=== PATIENT | female | born 1935 | race Caucasian/White ===

== ENCOUNTER 2019-12-07 14:18 | Inpatient (IN) | payer MEDICARE, SELFPAY ==
--- NOTE | ~2019-12-07 | XR_ITS ---
XR chest 1V portable DATE: 12/07/2019 15:47 INDICATION: Shortness of breath TECHNIQUE: Portable AP chest on 12/07/2019 at 1540 hours COMPARISON: 10/03/2014 2 view chest 10/05/2015 CT pulmonary scan FINDINGS: Status post sternotomy. Cardiac megaly. Aortic calcification and tortuosity. Moderate bilateral hyperinflation suggesting possible obstructive airways disease. Small pleural effu sions are suggested. No pulmonary consolidation is evident. There is evidence of old pulmonary granul omatous disease. Pulmonary vascularity appears within normal limits. Diffuse osteopenia. Cruz in proximal left humerus. IMPRESSION: Cardiomegaly Aortic atherosclerosis Small pleural effusions may be present. Bilateral hyperinflation, suggesting possible COPD Status post sternotomy Reviewed, dictated and finalized at location B.
[2019-12-07 14:25] VITALS: BP 175/109; PULSE 83; RESP 18; TEMP 36.7; O2SAT 100
--- NOTE | 2019-12-07 14:25 | ECG_ITS ---
Measurements Intervals [place] Rate: 76 P: AL: 0 QRS: -34 QRSD: 120 T: 148 QT: 410 QTc: 462 Interpretive Statements ATRIAL FIBRILLATION LEFT AXIS DEVIATION INTRAVENTRICULAR CONDUCTION DELAY VOLTAGE CRITERIA FOR LVH CANNOT RULE OUT SEPTAL INFARCT, AGE INDETERMINATE BORDERLINE ST-T WAVE ABNORMALITY- INF/LAT LEADS BASELINE WANDER- I, III, AVR, AVL, AVF ABNORMAL ECG Electronically Signed On 12-07-2019 14:49:47 CDT by Ben Gatica D.O.
[2019-12-07 14:46] LABS: Basophils Percent Auto 0.4 % (0.2-1.2); Eosinophils Absolute Auto 0.1 K/mm3 (0-0.3); Eosinophils Percent Auto 1.3 % (0-4.4); Hematocrit 38.4 % (37.0-47.0); Hemoglobin 12.3 g/dL (12.0-15.0); Immature Granulocyte Absolute 0.02 K/mm3 (0.00-0.031); Immature Granulocyte Percent A 0.3 % (0-0.5); Lymphocytes Absolute Auto 0.92 K/mm3 (0.9-3.2); Lymphocytes Percent Auto 13.4 % (18.3-44.2); Mean Corpuscular Hemoglobin 28.5 pg (26-34); Mean Corpuscular Volume 89.1 fl (80-100); Mean Platelet Volume 9.7 fl (7.4-10.4); Monocytes Absolute Auto 0.4 K/mm3 (0.1-0.6); Monocytes Percent Auto 6.4 % (2.6-8.5); Neutrophils Absolute Auto 5.4 K/mm3 (1.3-6.7); Neutrophils Percent Auto 78.2 % (45.5-73.1); Platelet Count Result 255 k/mm3 (150-375); Red Blood Count 4.31 M/mm3 (4.2-5.4); Red Cell Distribution Width 15.5 % (11.5-14.5); White Blood Count 6.9 K/mm3 (4.5-10.0)
[2019-12-07 14:55] LABS: INR 1.2; Prothrombin Time 14.5 Seconds (11.1-14.7)
[2019-12-07 14:56] LABS: Partial Thromboplastin Time 29.4 SECONDS (22.3-36.8)
[2019-12-07 15:03] LABS: Anion Gap 11.7 mmol/L (7-16); Blood Urea Nitrogen 21 mg/dL (7-17); Calcium 9.2 mg/dL (8.4-10.2); Carbon Dioxide 25 mmol/L (22-30); Chloride 104 mmol/L (98-107); Estimated CRCL calculation 32 ml/min; Estimated Glomerular Filt Rate 53; Glucose 112 mg/dL (65-105); Potassium 3.7 mmol/L (3.4-5.0); Sodium 137 mmol/L (137-145)
[2019-12-07 15:18] LABS: NT Pro B Type Natriuretic Pept 15700 PG/ML (5-100); Troponin I 0.058 ng/mL (0.000-0.034)
--- NOTE | 2019-12-07 15:41 | ED.GENADULT ---
HPI - General Adult General Chief complaint: Shortness of Breath/Dyspnea Stated complaint: SOB Time Seen by Provider: 12/07/19 15:19 Source: patient History of Present Illness HPI narrative: Patient is a 84 y/o female complaining of moderate SOB starting about 3 days ago. She states laying down worsens her SOB. She has some chest pressure when she lays down. She denies any leg swelling, cough or fever. She states that she has history of CHF and she usually goes to a felt hat inspector and packer Dr. Mccain at [place]. She also has history of A fib. Related Data Home Medications Medication Instructions Recorded Confirmed ascorbic acid (vitamin C) 500 mg mg PO 07/11/19 07/12/19 capsule aspirin 81 mg tablet,delayed 81 mg PO DAILY 07/11/19 07/12/19 release rosuvastatin 40 mg tablet 40 mg PO DAILY 07/11/19 07/12/19 nitroglycerin 0.4 mg sublingual 0.4 mg SUBLINGUAL Q5M 07/12/19 07/12/19 tablet Allergies Allergy/AdvReac Type Severity Reaction Status Date / Time tramadol Allergy Severe Vomiting Verified 12/07/19 14:30 meperidine Allergy Intermediate Vomiting Verified 12/07/19 14:30 Review of Systems Constitutional: Constitutional: Denies chills, Denies fever(s), Denies headache(s) and Denies weakness Eyes: Eyes: Denies blurry vision ENT: Denies headache(s) and Denies neck pain Cardiovascular: Cardiovascular: Reports chest pain and Denies dyspnea Respiratory: Respiratory: Denies cough and Reports dyspnea Gastrointestinal: Gastrointestinal: Denies abdominal pain, Denies diarrhea, Denies nausea and Denies vomiting Genitourinary: Genitourinary: Denies hematuria and Denies dysuria Musculoskeletal: Musculoskeletal: Denies back pain and Denies neck pain Neurologic: Denies headache(s) and Denies weakness [facility] Past Medical History Medical History Breast cancer Colon cancer Hypertension Osteoporosis Surgical History Surgical History History of repair of hip joint Status post mastectomy Family History Family History Mother Family history of Alzheimer's disease Sibling Family history of pancreatic cancer Other Carcinoma of colon Family history of malignant neoplasm of breast in first degree relative Hypertension Social History Social History Smoking status: Never smoker Alcohol intake: never Gender identity (if verbalized by the patient): Female Exam Const: General: no acute distress and well developed Orientation/consciousness: oriented to person, oriented to place, oriented to time and patient oriented x3 HENMT: Head: normocephalic Ears: external ears normal General nose exam: Normal external nose present Eyes: General: appearance normal, both eyes and all related structures Conjunctivae: conjunctivae normal Neck: Neck: normal visual inspection and full ROM Chest: Chest palpation & inspection: normal inspection of the chest and no tenderness Resp: Effort & Inspection: normal respiratory effort Auscultation: clear to auscultation bilaterally Cardio: Rate: regular rate Rhythm: abnormal rhythm irregularly irregular GI: GI Palp: No abdominal tenderness and Yes Soft to palpation Skin: General skin exam: normal color and turgor normal Neuro: General: oriented to person, oriented to place, oriented to time and patient oriented x3 Cognition (Neuro): normal cognition Extrem: General: normal to inspection, full ROM and no pedal edema Psych: Appearance: grossly normal Mental Status: mental status grossly normal Affect: normal affect Course Reevaluation(s) Reevaluation #1: Discussed with patient and family about test results. Advised admission and also offered transfer to her felt hat inspector and packer at [place]. However, patient wants to be treated here at this hospital. Date: 12/07/19 T
[2019-12-07] MEDS: FUROSEMIDE INJ 40 MG/4 ML VIAL IV PUSH (15:57)
[2019-12-07 16:02] VITALS: BP 200/116; PULSE 76; RESP 18; O2SAT 97
[2019-12-07] MEDS: cloNIDine HCL 0.2 MG TABLET PO (18:45)
[2019-12-07 19:02] VITALS: BP 160/78; PULSE 83; RESP 28; O2SAT 97
--- NOTE | 2019-12-07 19:51 | ADMGEN ---
This patient, Flori Oleary, was admitted to IMU Room 214-01. Patient/family oriented to hospital policies and general routines including ID bracelet, bed and alarms, visiting hours, pain management, procedures, bathroom and other care routines, personal items, smoking policy, room service/diet, and visiting hours. Valuables list has been completed. Information on how to activate the Rapid Response Team has been discussed. Patient/Family are encouraged to report perceived risks to care and to ask questions if they do not understand what they are told or what they should do.
[2019-12-07 19:55] VITALS: BP 177/107; PULSE 83; RESP 16; TEMP 36.5; O2SAT 97; BMI 24.5
[2019-12-07 20:11] VITALS: PULSE 62; PULSE 78; RESP 16; O2SAT 97
--- NOTE | 2019-12-07 20:38 | PM.IMHP ---
H&P: HPI History of Present Illness Date/Time: 12/07/19 20:38 Chief complaint: chf Narrative: Flori Oleary is a 84 year old female Who has a history of congestive heart failure. She typically sees her city clerk at [facility]. His name is Dr. Mccain. The patient stated that she has been short of breath that started about 3 days ago. She cannot lay flat. She also had a little bit of chest pressure in her epigastric area. She denied any acute leg swelling but always has some small amount of swelling to her left leg were they harvested vein for her CABG. She does have a history of atrial fibrillation which is typically well controlled. She is found to be in AFib with rate controlled. Chest x-ray was read as cardiomegaly. Aortic atherosclerosis. Small pleural effusion may be present. Bilateral hyperinflation suggesting COPD. Status post sternotomy. Patient was given 40 mg of Lasix IV push in the emergency room. She also got Catapres for the elevated blood pressure as well. Patient denies any further complaints of chest pain . Patient's troponin 0.058. BNP 16718. Creatinine was normal. Electrolytes within normal limits. I spent approximately 60 minutes in the IMU with this patient. 12/07/2019 date of service. Review of Systems Review of Systems: All systems reviewed & are unremarkable except as noted in HPI and below Constitutional: Constitutional: Reports as per HPI and Reports no additional constitutional complaints Eyes: Eyes: Reports as per HPI and Reports no additional eye complaints ENT: Reports system reviewed and no additional complaints, except as documented and Reports Normal hearing present Cardiovascular: Cardiovascular: Reports no additional cardiovascular complaints Respiratory: Respiratory: Reports no additional respiratory complaints and Reports no additional respiratory complaints Gastrointestinal: Gastrointestinal: Reports as per HPI and Reports no additional gastrointestinal complaints Musculoskeletal: Musculoskeletal: Reports no additional musculoskeletal complaints Integumentary/Breasts: Skin/Breast: Reports system reviewed and no additional complaints, except as docu and Reports as per HPI Neurologic: Reports system reviewed and no additional complaints, except as documented, Reports as per HPI and Reports Normal hearing present Psychiatric: Psychiatric: Reports no additional psychiatric complaints and Reports as per HPI Endocrine: Endocrine: Reports no additional endocrine complaints Hematologic/Lymphatic: Hematologic/Lymphatic: Reports no additional hematologic/lymphatic complaints Allergic/Immunologic: Allergic/Immunologic: Reports no additional allergic/immunologic complaints [facility] Past Medical History Medical History (Updated 12/07/19 @ 20:48 by Giselle De Luna NP) Atrial fibrillation Breast cancer 2005 with radiation chemotherapy. Right mastectomy CHF (congestive heart failure) Colon cancer History of colectomy no chemo radiation at that time Hypertension Hypertension Osteoporosis Vulvar cancer She was diagnosed in 2016 and had radiation and chemotherapy no longer takes any treatment. Surgical History Surgical History (Updated 12/07/19 @ 20:50 by Giselle De Luna NP) H/O: hysterectomy History of colectomy History of repair of hip joint she broke both hips but only the level was repaired. Hx of CABG 1 vessel donor site left Status post mastectomy right side Family History Family History (Updated 12/07/19 @ 20:50 by Giselle De Luna NP) Mother Family history of Alzheimer's disease Sibling Family history of pancreatic cancer Hypertension all 4 sisters but 1 has . 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
[2019-12-07 22:00] VITALS: PULSE 54
[2019-12-08] VITALS (14 sets, daily range): BP systolic 144–171; BP diastolic 74–103; PULSE 54–79; RESP 16–18; TEMP 36.3–37.2; O2SAT 96–100
--- NOTE | 2019-12-08 | ECHO_ITS ---
Patient Info Name: Flori Oleary Age: 84 years : 1935 Gender: Female Ht: 63 in Wt: 138 lbs BSA: 1.68 m2 HR: 58 bpm BP: 171 / 103 mmHg Technical Quality: Good Exam Date: 12/08/2019 8:33 AM Exam Location: [facility] Patient Status: Outpatient Admit Date: 12/07/2019 Staff Ordering Physician: Giselle De Luna NP Candy Department Manager: Julia Bejarano RDCS Attending Provider: Ashley Cardenas PA-C Referring Physician: Calixto EDUARDO; Exam Type: CA echo doppler color flow Study Info Indications I50.9 - Heart failure, unspecified Complete two-dimensional, color flow and Doppler transthoracic echocardiogram is performed. Summary 1. There is mild aortic valve regurgitation. 2. There is moderate mitral valve regurgitation. 3. There is mild to moderate tricuspid valve regurgitation. 4. Severe pulmonary hypertension, estimated pulmonary arterial systolic pressure is 64 mmHg. Left Ventricle Left ventricular chamber dimension is normal. Left ventricular systolic function is normal, estimated at 50-55%. There is no increased left ventricular wall thickness. Left ventricular septal wall motion is normal. The left ventricular diastolic function is normal. Right Ventricle Right ventricular chamber dimension is normal. Right ventricular systolic function is normal. Left Atria Left atrial chamber dimension is moderately enlarged. Right Atria Right atrial chamber dimension is moderately enlarged. Aortic Valve The aortic valve is trileaflet. There is no aortic valve sclerosis. There is no aortic valve stenosis. There is mild aortic valve regurgitation. Pulmonic Valve The pulmonic valve is normal. There is no pulmonic valve stenosis. There is no pulmonic regurgitation. Mitral Valve The mitral valve has normal leaflets. There is no mitral valve stenosis. There is moderate mitral valve regurgitation. Tricuspid Valve The tricuspid valve leaflets are normal. There is no significant tricuspid valve stenosis. There is mild to moderate tricuspid valve regurgitation. Severe pulmonary hypertension, estimated pulmonary arterial systolic pressure is 64 mmHg. Pericardium/Pleural The pericardium appears normal. There is no pericardial effusion. Inferior Vena Cava Normal inferior vena cava with >50% collapse upon inspiration consistent with elevated right atrial pressure, 10 mmHg. Aorta The aortic root size at the sinus of Valsalva is normal. The prox ascending aorta size is normal. Left Ventricular Outflow Tract Name Value Normal LVOT 2D LVOT Diameter 1.9 cm LVOT Doppler LVOT Peak Gradient 2 mmHg LVOT Mean Gradient 1 mmHg LVOT VTI 20 cm LVOT VTI/AV VTI Ratio 0.7 LVOT Stroke Volume 55 ml LVOT CO 3.2 l/min LVOT CI 1.9 l/min/m2 Pulmonic Valve Name Value No
[2019-12-08 07:18] LABS: Basophils Percent Auto 0.7 % (0.2-1.2); Eosinophils Absolute Auto 0.2 K/mm3 (0-0.3); Eosinophils Percent Auto 2.5 % (0-4.4); Hematocrit 37.6 % (37.0-47.0); Immature Granulocyte Absolute 0.03 K/mm3 (0.00-0.031); Immature Granulocyte Percent A 0.5 % (0-0.5); Lymphocytes Absolute Auto 0.81 K/mm3 (0.9-3.2); Lymphocytes Percent Auto 13.3 % (18.3-44.2); Mean Corpuscular HGB Conc 31.9 g/dl (32-36); Mean Corpuscular Hemoglobin 28.4 pg (26-34); Mean Corpuscular Volume 89.1 fl (80-100); Mean Platelet Volume 10.2 fl (7.4-10.4); Monocytes Absolute Auto 0.5 K/mm3 (0.1-0.6); Monocytes Percent Auto 7.9 % (2.6-8.5); Neutrophils Absolute Auto 4.6 K/mm3 (1.3-6.7); Neutrophils Percent Auto 75.1 % (45.5-73.1); Platelet Count Result 229 k/mm3 (150-375); Red Blood Count 4.22 M/mm3 (4.2-5.4); Red Cell Distribution Width 15.5 % (11.5-14.5); White Blood Count 6.1 K/mm3 (4.5-10.0)
[2019-12-08 07:35] LABS: Alanine Aminotransferase 21 U/L (4-35); Albumin Level 3.6 g/dL (3.5-5.1); Alkaline Phosphatase 76 U/L (38-126); Anion Gap 10.3 mmol/L (7-16); Aspartate Amino Transferase 24 U/L (14-36); Bilirubin,Total 0.7 mg/dL (0.2-1.3); Blood Urea Nitrogen 23 mg/dL (7-17); Carbon Dioxide 29 mmol/L (22-30); Chloride 103 mmol/L (98-107); Estimated CRCL calculation 32 ml/min; Estimated Glomerular Filt Rate 53; Glucose 91 mg/dL (65-105); Magnesium 1.8 mg/dL (1.6-2.3); Potassium 3.3 mmol/L (3.4-5.0); Sodium 139 mmol/L (137-145)
--- NOTE | 2019-12-08 09:23 | PM.CNCAR ---
Assessment and Plan Assessment and plan (1) CHF (congestive heart failure): Qualifiers: Heart failure chronicity: acute on chronic Heart failure type: unspecified Qualified Code(s): I50.9 - Heart failure, unspecified Code(s): I50.9 - Heart failure, unspecified Status: Chronic Assessment and Plan: Patient is an 84-year-old white woman with history of congestive heart failure, coronary artery disease status post coronary artery bypass grafting (June 2012), hypertension, atrial fibrillation, breast cancer (2004, s/p radiation therapy, status post right mastectomy), colon cancer (status post colectomy ), who is seen in cardiac consultation for a chief complaint of dyspnea, with [id number] myocardial infarction. - She has acute on chronic heart failure with preserved ejection fraction occurring in the setting of hypertensive urgency and non ST elevation myocardial infarction. - She is symptomatically much improved with initial diuresis. - Patient reports adding a small amount of salt to her diet and importance of sodium restriction was discussed with the patient. - Improve blood pressure control, with increased doses of her amlodipine and lisinopril. - TSH normal this admission. - Continue gentle diuresis with IV Lasix with careful monitoring of electrolytes and renal function. - obtain echo to evaluate cardiac structure and function. - Given her mild troponin I elevation to 0.058 this admission with [id number] myocardial infarction, anticipate need for Lexiscan nuclear stress testing as an outpatient to evaluate for ischemia pending improvement in her acute congestive heart failure exacerbation. -Patient is normally seen by her sleeve setter safety stitch Dr. 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 Obtain records from [facility] and Dr. Mccain regarding prior left heart catheterization, stress testing, and echocardiography. (2) Atrial fibrillation: Qualifiers: Atrial fibrillation type: unspecified Qualified Code(s): I48.91 - Unspecified atrial fibrillation Code(s): I48.91 - Unspecified atrial fibrillation Status: Chronic Assessment and Plan: - She is currently in atrial fibrillation, rate controlled with heart rate 69 beats per minute. - Not initiating metoprolol as her resting heart rate was briefly 39 overnight on several occasions when she was sleeping. - avoid further dosing of clonidine given her tendency toward bradycardia overnight. - Monitor and replete potassium and magnesium as needed. - Patient was not on anticoagulation as an outpatient and she does have a history of bilateral hip fractures previously. - Initiated aspirin this admission. Pending the absence of recent falls and with tolerance of aspirin initiation, consider anticoagulation for thromboembolic risk reduction. (3) Non-ST elevation myocardial infarction (NSTEMI): Code(s): I21.4 - Non-ST elevation (NSTEMI) myocardial infarction Status: Acute Assessment and Plan: - Patient's troponin I was initially elevated at 0.058, with repeat troponin I 0.042. - Patient denies chest pain, and EKG without evidence of acute injury. - the patient was not on aspirin as an outpatient and aspirin was begun this admission. - continue rosuvastatin and obtain fasting lipid panel. - not initiating metoprolol as her resting heart rate was briefly 39 overnight on several occasions when she was sleeping. She is currently in atrial fibrillation with heart rate 69 beats per minute. - Given her known history of coronary artery disease with prior coronary bypass grafting in June 2012, the patient would benefit from Lexiscan nuclear stress testing as an outpatient to evaluate for ischemia in the setting of her mild elevatio
[2019-12-08] MEDS: FUROSEMIDE INJ 40 MG/4 ML VIAL IV PUSH (10:03)
[2019-12-08] MEDS: ROSUVASTATIN 10 MG TABLET 40 MG PO (10:03)
[2019-12-08] MEDS: POTASSIUM CHLORIDE 20 MEQ TABLET 40 MEQ PO ×2 (10:03→16:43)
[2019-12-08] MEDS: ASPIRIN 81 MG CHEWABLE TABLET 324 MG PO (10:03)
[2019-12-08] MEDS: hydroCHLOROthiazide 12.5 MG CAPSULE PO (10:04)
[2019-12-08] MEDS: amLODIPine BESYLATE 5 MG TABLET 10 MG PO (10:04)
[2019-12-08] MEDS: lisinopriL 20 MG TABLET PO ×2 (10:05→16:09)
[2019-12-08 11:14] LABS: Troponin I 0.042 ng/mL (0.000-0.034)
--- NOTE | 2019-12-08 15:50 | PM.IMPN ---
Progress Note: A&P Assessment and Plan (1) CHF (congestive heart failure): Qualifiers: Heart failure chronicity: acute on chronic Heart failure type: unspecified Qualified Code(s): I50.9 - Heart failure, unspecified Code(s): I50.9 - Heart failure, unspecified Status: Chronic Assessment and Plan: ----- echo reviewed. Patient is no longer having chest pain or dyspnea on exertion. She has improved with the IV Lasix. She will likely be able to go home tomorrow if she continues to do well. Continue lisinopril. there was concern for bradycardia, home metoprolol has not been restarted. Await cardiology's recommendations. (2) Atrial fibrillation: Qualifiers: Atrial fibrillation type: unspecified Qualified Code(s): I48.91 - Unspecified atrial fibrillation Code(s): I48.91 - Unspecified atrial fibrillation Status: Chronic Assessment and Plan: ----- Contrary to the ER note, the patient states that she has never heard of atrial fibrillation and does not have it. At this time she is rate controlled. Her home a metoprolol has been on hold. She has a history of falls but may be a candidate for anticoagulation. Will discuss with Cardiology. I educated the patient about atrial fibrillation and answered all of her questions. (3) Elevated troponin: Code(s): R79.89 - Other specified abnormal findings of blood chemistry Status: Acute Assessment and Plan: ----- Last troponin lower than the initial troponin and the patient has not had any chest pain . Likely related to heart failure.The patient did have some epigastric pain earlier. She does have a history of having 1 vessel CABG. Further recommendations per cardiology. . (4) Hypertension: Qualifiers: Hypertension type: essential hypertension Qualified Code(s): I10 - Essential (primary) hypertension Code(s): I10 - Essential (primary) hypertension Status: Chronic Assessment and Plan: ----- Last blood pressure 162/95. Continue lisinopril , amlodipine, and hydrochlorothiazide. (5) Osteoporosis: Qualifiers: Osteoporosis type: unspecified Presence of current pathological fracture: without current pathological fracture Qualified Code(s): M81.0 - Age-related osteoporosis without current pathological fracture Code(s): M81.0 - Age-related osteoporosis without current pathological fracture Status: Chronic Assessment and Plan: -----Continue with Fosamax. Time Spent With Patient Time with patient: 25 - 35 minutes Subjective Date/time seen: 12/08/19 15:50 Interval history: Pt is a 84-year-old female who presented emergency room for chest pressure and shortness of breath. Patient has history of CHF and states that felt like that. On my exam, she does not admit to atrial fibrillation and says she has never heard of it. She says she has never been diagnosed with the and has never been told she has an irregular heartbeat but does know that she has CHF. Nevertheless, the patient is feeling much better today and has not had any chest pain, shortness of breath and has been up walking to the bathroom without any dyspnea on exertion. She is eating and drinking well. She denies nausea, vomiting, fevers, chills, leg swelling. Review of Systems Review of Systems: All systems reviewed & are unremarkable except as noted in HPI and below Exam Narrative: Exam Narrative: General: Well developed well nourished patient Resting comfortably in bedin NAD HEENT: normocephalic Neck: supple Neuro: Alert and oriented x4 CV: irregularly irregular. Telemetry shows rate controlled atrial fibrillation with occasional PVCs. Flipped T-waves Resp: mild crackles that cleared with deep breaths. Overall clear to auscultation Abd: Soft, non distended. No pain to palpation. Positive bowel sounds Extremities: No swelling, erythema, or pain to
--- NOTE | 2019-12-08 20:44 | PC.NURSE ---
PATIENT TRANSFERRED TO [address] [place] [address] WITH BELONGINGS. REPORT CALLED ON DAY SHIFT TO NIGHT NURSE. VITAL SIGNS STABLE AT TIME OF TRANSFER. PATIENT PLACED ON HEART MONITOR.
[2019-12-09] VITALS (7 sets, daily range): BP systolic 148–154; BP diastolic 65–89; PULSE 61–89; RESP 16–21; TEMP 36.3–36.4; O2SAT 97–100
[2019-12-09] MEDS: hydrALAZINE HCL 20 MG/ML VIAL 10 MG IV PUSH (05:07)
[2019-12-09 05:46] LABS: Anion Gap 12.7 mmol/L (7-16); Blood Urea Nitrogen 27 mg/dL (7-17); Calcium 9.1 mg/dL (8.4-10.2); Carbon Dioxide 27 mmol/L (22-30); Chloride 98 mmol/L (98-107); Cholesterol 176 mg/dL (0-200); Estimated CRCL calculation 29 ml/min; Estimated Glomerular Filt Rate 48; Glucose 97 mg/dL (65-105); HDL Direct 37 mg/dL; Magnesium 1.8 mg/dL (1.6-2.3); Potassium 3.7 mmol/L (3.4-5.0); Sodium 134 mmol/L (137-145); Triglycerides 98 mg/dL (<150)
[2019-12-09 05:57] LABS: LDL Cholesterol Direct 107 mg/dL
[2019-12-09 08:06] LABS: Glucose Point of Care 110 (65-105)
[2019-12-09] MEDS: ASPIRIN 81 MG ENTERIC TABLET PO (08:53)
[2019-12-09] MEDS: ROSUVASTATIN 10 MG TABLET 40 MG PO (08:53)
[2019-12-09] MEDS: lisinopriL 20 MG TABLET 40 MG PO (08:53)
[2019-12-09] MEDS: amLODIPine BESYLATE 5 MG TABLET 10 MG PO (08:54)
[2019-12-09] MEDS: hydroCHLOROthiazide 12.5 MG CAPSULE PO (08:54)
[2019-12-09] MEDS: FUROSEMIDE INJ 40 MG/4 ML VIAL IV PUSH (08:54)
--- NOTE | 2019-12-09 10:23 | PM.DS ---
DS: Admitting Diagnosis Admitting Diagnosis Admitting Diagnosis: Heart failure, unspecified DS: Discharge Diagnosis Discharge Diagnosis (1) CHF (congestive heart failure): Qualifiers: Heart failure chronicity: acute on chronic Heart failure type: unspecified Qualified Code(s): I50.9 - Heart failure, unspecified Code(s): I50.9 - Heart failure, unspecified Status: Chronic Assessment and Plan: ----- echo reviewed. Patient is no longer having chest pain or dyspnea on exertion. She has improved with the IV Lasix And has been transition to oral at discharge. She is going to get a repeat BMP with results going to Dr. Calvo's long-term metoprolol decreased. (2) Atrial fibrillation: Qualifiers: Atrial fibrillation type: unspecified Qualified Code(s): I48.91 - Unspecified atrial fibrillation Code(s): I48.91 - Unspecified atrial fibrillation Status: Chronic Assessment and Plan: ----- Contrary to the ER note, the patient states that she has never heard of atrial fibrillation and does not have it. At this time she is rate controlled. I spoke to Cardiology and the patient about this. We will continue her on her metoprolol. Her CHADS2 Vasc score was 6 and her has bled score was two. She does not have any recent falls and is pretty active. She was started on a low dose 2.5 mg of Eliquis for stroke prophylaxis and educated about the worrisome signs and symptoms for acute blood loss and come back to emergency room if needed. Follow-up with cardiology (3) Elevated troponin: Code(s): R79.89 - Other specified abnormal findings of blood chemistry Status: Acute Assessment and Plan: ----- Last troponin lower than the initial troponin and the patient has not had any chest pain . . (4) Hypertension: Qualifiers: Hypertension type: essential hypertension Qualified Code(s): I10 - Essential (primary) hypertension Code(s): I10 - Essential (primary) hypertension Status: Chronic Assessment and Plan: ----- Last blood pressure 148/65. Continue lisinopril , amlodipine, and Lasix (5) Osteoporosis: Qualifiers: Osteoporosis type: unspecified Presence of current pathological fracture: without current pathological fracture Qualified Code(s): M81.0 - Age-related osteoporosis without current pathological fracture Code(s): M81.0 - Age-related osteoporosis without current pathological fracture Status: Chronic Assessment and Plan: -----Continue with Fosamax. DS: Summary Hospital Course Reason for hospitalization: CHF exacerbation Hospital Course: patient is an 84-year-old female with history of coronary artery disease with a CABG who presented emergency room for shortness of breath and chest pressure found to be in CHF exacerbation And atrial fibrillation. vitals in the ER were temperature 36.7?, pulse 83, respiratory rate 18, blood pressure 175/109, pulse ox 100 on room air. Initial CBC within normal limits. Initial BMP [place] [address] and initial troponin 0.058 which decreased to 0.042. EKG revealed atrial fibrillation, left axis deviation, intraventricular conduction delay. Chest x-ray revealed cardiomegaly with small pleural effusions and possible COPD. Patient was admitted to the hospitalist service and started on IV Lasix. She was seen by the cigar maker service as well but usually sees Dr. Mccain. the patient claims that she has CHF but no history of atrial fibrillation despite the ER documentation. She improved with IV Lasix and her chest pain resolved. She underwent an echo which is detailed below. Her blood pressure was uncontrolled during her stay but improved with medication adjustment. Her blood pressure at discharge was 148/65. Please see above for further details. the day of discharge the patient felt back to baseline and was re
--- NOTE | 2019-12-10 11:07 | PC.NURSE ---
Pt called, says Phylicia Carvalho has not received discharge scripts for furosemide, potassium, & eliquis. Alana called scripts in to pharmacy and spoke with a pharmacy sales representative jewelry who says they will fill those promptly.
== END 2019-12-09 12:45 | disposition home or self-care (01) | DRG 280 ==
LOC: ANHED 18:19 → ANHIMU 18:38 → ANH2MED 12-09 03:19 → ANHIMU 12-13 14:13
PROVIDERS: Internal Medicine Cardiovascular Disease; Nurse Practitioner; Physician Assistant; Admitting Provider Family Medicine; Emergency Provider Emergency Medicine; PCP Internal Medicine; Visit Provider Internal Medicine
DX: I16.0 Hypertensive urgency (principal); I21.4 Non-ST elevation (NSTEMI) myocardial infarction; I50.33 Acute on chronic diastolic (congestive) heart failure; I11.0 Hypertensive heart disease with heart failure; Z95.1 Presence of aortocoronary bypass graft; I25.10 Atherosclerotic heart disease of native coronary artery without angina pectoris; I70.0 Atherosclerosis of aorta; I48.91 Unspecified atrial fibrillation; M81.0 Age-related osteoporosis without current pathological fracture; Z85.038 Personal history of other malignant neoplasm of large intestine; Z85.3 Personal history of malignant neoplasm of breast; Z85.44 Personal history of malignant neoplasm of other female genital organs; Z90.49 Acquired absence of other specified parts of digestive tract; Z79.899 Other long term (current) drug therapy
CPT/HCPCS: 36415; 71045; 80048; 80053; 80061; 83735; 83880; 84443; 84484; 85025; 85610; 85730; 93005; 93306; 96374; 96376; 99285; A9270; G0378; J0360; J1940

== ENCOUNTER 2019-12-15 08:48 | Outpatient (CLI) | payer MEDICARE, SELFPAY ==
[2019-12-15 09:27] LABS: Anion Gap 8 mmol/L (8-16); Blood Urea Nitrogen 33 mg/dL (7-17); Calcium 9.7 mg/dL (8.4-10.2); Carbon Dioxide 30 mmol/L (22-30); Chloride 99 mmol/L (98-107); Estimated Glomerular Filt Rate 48; Glucose 101 mg/dL (65-105); Potassium 4.1 mmol/L (3.4-5.0); Sodium 137 mmol/L (137-145)
== END 2019-12-15 08:49 | disposition home or self-care (01) ==
LOC: ANHLAB 08:50
PROVIDERS: PCP Internal Medicine; Visit Provider Physician Assistant
DX: E87.6 Hypokalemia (principal)
CPT/HCPCS: 36415; 80048

== ENCOUNTER 2020-08-29 01:20 | Inpatient (IN) | payer MEDICARE, SELFPAY ==
[2020-08-29] VITALS (9 sets, daily range): BP systolic 105–187; BP diastolic 63–99; PULSE 68–87; RESP 16–19; TEMP 36.3–37.1; O2SAT 94–99; BMI 26.2
--- NOTE | ~2020-08-29 | CT_ITS ---
EXAMINATION: CT brain wo con DATE: 08/30/2020 07:26 INDICATION: Cerebrovascular accident. TECHNIQUE: Computed tomography (CT) of the head was performed without intravenous contrast. The mA wa s adjusted according to patient size. Iterative reconstruction technique was employed. The dose-lengt h product was 605.33 mGy-cm. COMPARISON: Head CT 08/29/2020, brain MRI 08/29/2020 FINDINGS: There are old infarcts involving the bilateral basal ganglia and farias radiata. There is a n 11 x 7 mm calcified extra-axial mass in right cerebellopontine angle. There are scattered areas of low attenuation in the cerebral white matter. There is no intracranial hemorrhage. There is an acute infarct involving left internal capsule and left caudate body. The ventricles are normal in size. The re are likely changes of left ocular lens replacement surgery. There are calcifications at the 3d designer ior aspects of the ocular globes. The mastoid air cells are normal. IMPRESSION: 1. Acute infarct involving left internal capsule and left caudate body. 2. Old infarcts involving the bilateral basal ganglia and farias radiata. 3. 11 mm calcified extra-axial mass in right cerebellopontine angle, which may be a dural calcificati on or meningioma. 4. Moderate nonspecific cerebral white matter disease, which likely represents chronic small vessel i schemic disease. Reviewed, dictated and finalized at location A. IMPRESSION: 1. Acute infarct involving left internal capsule and left caudate body. 2. Old infarcts involving the bilateral basal ganglia and farias radiata. 3. 11 mm calcified extra-axial mass in right cerebellopontine angle, which may be a dural calcification or meningioma. 4. Moderate nonspecific cerebral white matter disease, which likely represents chronic small vessel ischemic disease.
--- NOTE | ~2020-08-29 | US_ITS ---
EXAMINATION: US carotid duplex BI DATE: 08/29/2020 17:32 INDICATION: Acute stroke. TECHNIQUE: Grayscale, color Doppler, and pulsed Doppler images of the cervical carotid arteries were obtained. The degree of vessel stenosis is placed in one of the following categories: normal, <50%, 5 0-69%, >=70% but less than near-occlusion, near-occlusion, or total occlusion. Note that percent sten osis relative to normal distal artery lumen diameter is indirectly measured from velocity measurement s as described by Santana, et al. Radiology 2003; 229:340-346. COMPARISON: None. FINDINGS: RIGHT: The right common carotid artery (CCA) peak systolic velocity (PSV) is 69 cm/s. The right internal car otid artery (ICA) PSV is 109 cm/s. The right ICA end-diastolic velocity (EDV) is 21 cm/s. The right I CA/CCA PSV ratio is 1.6. Grayscale and color Doppler images yield an estimate of <50% diameter reduct ion from plaque in the ICA. The external carotid artery (ECA) PSV is 225 cm/s. There is antegrade jayla w in the right vertebral artery. LEFT: The left CCA PSV is 84 cm/s. The left ICA PSV is 125 cm/s. The left ICA EDV is 37 cm/s. The left ICA/ CCA PSV ratio is 1.5. Grayscale and color Doppler images yield an estimate of 50-69% diameter reducti on from plaque in the ICA. The ECA PSV is 169 cm/s. There is antegrade flow in the left vertebral art anna. IMPRESSION: 1. <50% stenosis in the right internal carotid artery. 2. 50-69% stenosis in the left internal carotid artery. 3. Cardiac arrhythmia is present. Correlate with EKG . Reviewed, dictated and finalized at location A.
--- NOTE | ~2020-08-29 | CT_ITS ---
EXAMINATION: CTA brain carotid EXAM DATE: 08/30/2020 09:40 INDICATION: New CVA, weakness, carotid stenosis . Acute left internal capsular, caudate body infarcti ons. Old basal ganglia, farias radiata infarctions. TECHNIQUE: Spiral CTA of the carotid arteries was performed with intravenous injection 100 cc of Om nipaque 350. Axial, coronal, sagittal reformatted images reviewed. Additional reformatted images cre ated on dedicated 3-D workstation. NASCET comparable standard used to assess the degree of arterial stenosis. Spiral CT angiogram cerebral arteries performed with the same intravenous injection of con trast. Source images of the brain CTA transferred to dedicated workstation for 3-D rotational image c reation. Coronal, sagittal maximum intensity pixel images also reviewed. The dose-length product (D LP) for this examination was 867.91 mGy-cm. The exposure was tailored according to patient size, an d iterative reconstruction (ASIR) was used as additional dose reduction technique. Correlation is mad e to head CT from earlier same date. FINDINGS: Moderate amount of scattered arterial sclerotic disease overall, with 70% stenosis of the r ight subclavian artery just beyond its origin, for short segment. There is 30% stenosis of the left c arotid bulb, and 45% stenosis of the right carotid bulb arterial sclerosis. Bilateral carotid siphon arterial sclerosis, with only mild stenosis. Scattered bilateral vertebral artery calcifications with fusiform dilation of the left vertebral artery just below the foramen magnum, up to 7 mm in diameter versus its expected caliber of 4 mm proximal to this. More saccular 6 mm aneurysm of the left verteb ral artery just proximal to the basilar junction potentially could be considered for prophylactic bautista atment. Extensive scattered right vertebral arterial sclerotic disease with multiple regions of narro wing. Severe short statement stenosis of mid aspect right anterior cerebral artery, the A3 segment in dicated on axial image 156. Small hypodense region left periventricular region, internal capsule and caudate body most likely an acute infarction given it was not identified yesterday. Bilateral lacunar infarctions. Microangiopath y. Left-sided cataract surgery. Calcified right cerebellopontine angle 11 mm mass probably a meningio ma. Multinodular goiter. Overall moderate cervical arthropathy. Left shoulder hardware, sternotomy wi res. There is a growth along the skin of the left upper forehead, region measuring 8 mm in diameter b y 3 mm in thickness. This could be a mole or skin cancer. Other regions of smaller focal skin thicken ing as well. IMPRESSION: 1. Probable small acute left periventricular lacunar infarction. 2. 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 3. Right carotid bulb 45% stenosis, left carotid bulb 30% stenosis. 4. Right subclavian artery origin 70% stenosis. 5. Short segment severe stenosis right anterior cerebral artery. 6. Scalp lesions, largest along left frontal region. Cancer not excludable 7. Other chronic findings. Reviewed, dictated and finalized at location A. IMPRESSION: 1. Probable small acute left periventricular lacunar infarction. 2. 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 3. Right carotid bulb 45% stenosis, left carotid bulb 30% stenosis. 4. Right subclavian artery origin 70% stenosis. 5. Short segment severe stenosis right anterior cerebral artery. 6. Scalp lesions, largest along left frontal region. Cancer not excludable 7. Other chronic findings.
--- NOTE | ~2020-08-29 | CT_ITS ---
EXAMINATION: CT pelvis wo con DATE: 08/29/2020 14:30 INDICATION: Pelvis pain. TECHNIQUE: Computed tomography (CT) of the pelvis was performed without intravenous contrast. Automat ed exposure control and iterative reconstruction technique were employed. The dose-length product was 426.84 mGy-cm. COMPARISON: CT abdomen and pelvis 09/03/2015 FINDINGS: There is diverticulosis of the colon without evidence of diverticulitis. There is a left hi p bipolar hemiarthroplasty in near-anatomic alignment. There is an oblique fracture of greater trocha nter of proximal right femur. The distal fracture fragment demonstrates near-anatomic alignment. Ther e is moderate right hip osteoarthritis. There are old healed fractures of left superior and inferior pubic rami. There is mild lumbar spondylosis. IMPRESSION: 1. Acute oblique fracture of the greater trochanter of proximal right femur in near-anatomic alignmen t. 2. Moderate right hip osteoarthritis. 3. Left hip bipolar hemiarthroplasty in near-anatomic alignment. Reviewed, dictated and finalized at location A. IMPRESSION: 1. Acute oblique fracture of the greater trochanter of proximal right femur in near-anatomic alignment. 2. Moderate right hip osteoarthritis. 3. Left hip bipolar hemiarthroplasty in near-anatomic alignment.
--- NOTE | ~2020-08-29 | NM_ITS ---
EXAMINATION: NM bone scan whole body DATE: 08/30/2020 13:53 INDICATION: Sclerotic skull lesion. TECHNIQUE: 23.1 mCi Tc-99m HDP was administered intravenously. Delayed whole-body scintigrams were o btained. COMPARISON: Head CT 08/30/2020, brain MRI 08/29/2020, chest single view 12/07/2019, pelvis CT 08/29/2020 FINDINGS: There is faint increased activity in right lateral skull in the lesion seen by MRI. There i s joint-centered increased activity in the knees, feet, and spine, consistent with osteoarthritis. Th ere is a left hip arthroplasty. There is increased activity in the greater trochanter of proximal rig ht femur. There are changes of median sternotomy. IMPRESSION: 1. Increased activity in right lateral skull in the lesion seen by MRI. As an isolated lesion, this f inding is likely benign. 2. Increased activity in greater trochanter of proximal right femur correlating with a fracture by CT . Reviewed, dictated and finalized at location A. IMPRESSION: 1. Increased activity in right lateral skull in the lesion seen by MRI. As an i solated lesion, this finding is likely benign. 2. Increased activity in greater trochanter of proximal right femur correlating with a fracture by CT.
--- NOTE | ~2020-08-29 | MR_ITS ---
EXAMINATION: MR brain/brain stem wo con DATE: 08/29/2020 14:23 INDICATION: Right hemiparesis. TECHNIQUE: Magnetic resonance imaging (MRI) of the brain and brainstem was performed without intraven ous contrast. Sequences included sagittal and axial T1-weighted FSE, axial diffusion-weighted FS EPI, axial T2*-weighted GRE, axial T2-weighted FLAIR Propeller, and axial T2-weighted Propeller. Apparent diffusion coefficient (ADC) maps were created. COMPARISON: Head CT 08/29/2020, bone scan 10/23/2004 FINDINGS: There is an acute infarct involving the posterior limb left internal capsule. There are old infarcts in the bilateral basal ganglia and farias radiata. There are scattered areas of nonspecific increased T2-weighted signal intensity in the cerebral white matter. There is no intracranial hemorr bandar. There is ex vacuo dilatation of frontal horn of left lateral ventricle. There is mild mucosal t hickening in the paranasal sinuses. There are likely changes of left ocular lens replacement surgery. The mastoid air cells are normal. There is a 3.6 x 2.5 cm mass of decreased T2 and T1 weighted signa l intensity in the bone marrow of the skull on the right. IMPRESSION: 1. Acute infarct involving posterior limb left internal capsule. 2. Old infarcts in the bilateral basal ganglia and farias radiata. 3. Moderate nonspecific cerebral white matter disease, which likely represents chronic small vessel i schemic disease. 4. 3.6 cm right skull lesion correlating with ill-defined sclerosis by CT, which may be benign or met astatic disease. Bone scan is recommended. Reviewed, dictated and finalized at location A. IMPRESSION: 1. Acute infarct involving posterior limb left internal capsule. 2. Old infarcts in the bilateral basal ganglia and farias radiata. 3. Moderate nonspecific cerebral white matter disease, which likely represents chronic small vessel ischemic disease. 4. 3.6 cm right skull lesion correlating with ill-defined sclerosis by CT, whic h may be benign or metastatic disease. Bone scan is recommended.
--- NOTE | ~2020-08-29 | XR_ITS ---
EXAMINATION: XR hip RT 2V w AP pelvis DATE: 08/29/2020 04:27 INDICATION: Right hip pain. Fall. TECHNIQUE: An anteroposterior pelvis and 2 views of right hip were obtained. COMPARISON: Pelvis radiograph 11/15/2017 FINDINGS: There is a bipolar left hip hemiarthroplasty in near-anatomic alignment. There are old heal ed fractures of left superior and inferior pubic rami. Osteopenia is noted. There is moderate lumbar spondylosis. There is moderate right hip osteoarthritis. Osteitis pubis is noted. Surgical clips over lie the perineum and left thigh. IMPRESSION: 1. Moderate right hip osteoarthritis. 2. Left hip bipolar hemiarthroplasty in near-anatomic alignment. Reviewed, dictated and finalized at location A.
--- NOTE | ~2020-08-29 | CT_ITS ---
EXAMINATION: CT brain wo con DATE: 08/29/2020 04:34 INDICATION: Head injury. TECHNIQUE: Computed tomography (CT) of the head was performed without intravenous contrast. The mA wa s adjusted according to patient size. Iterative reconstruction technique was employed. The dose-lengt h product was 605.33 mGy-cm. COMPARISON: None FINDINGS: There are old infarcts involving the bilateral basal ganglia and farias radiata. There are scattered areas of low attenuation in the cerebral white matter. There is no intracranial hemorrhage, acute infarction, or abnormal intracranial mass lesion. The ventricles are normal in size. There are posterior choroidal calcifications in the ocular globes. There is mild mucosal thickening in the par anasal sinuses. The mastoid air cells are normal. IMPRESSION: 1. Old infarcts involving the bilateral basal ganglia and farias radiata. 2. Moderate nonspecific cerebral white matter disease, which likely represents chronic small vessel i schemic disease. Reviewed, dictated and finalized at location A. IMPRESSION: 1. Old infarcts involving the bilateral basal ganglia and farias radiata. 2. Moderate nonspecific cerebral white matter disease, which likely represents chronic small vessel ischemic disease.
--- NOTE | 2020-08-29 01:36 | PC.NURSE ---
Nurse notes and orders also written on paper charting.
--- NOTE | 2020-08-29 01:44 | ECG_ITS ---
Measurements Intervals [place] Rate: 69 P: IA: 0 QRS: -42 QRSD: 129 T: 97 QT: 467 QTc: 504 Interpretive Statements ATRIAL FIBRILLATION VENTRICULAR PREMATURE COMPLEXES LEFT AXIS DEVIATION LEFT BUNDLE BRANCH BLOCK BASELINE ARTIFACT- I, II, III, AVR, AVL, AVF, V3-V6 ABNORMAL ECG Electronically Signed On 08-29-2020 7:09:04 CDT by Ben Gatica D.O.
[2020-08-29] MEDS: HYDROcodone/acetaminophen (*CRX) 5-325 MG TABLET 1 TAB PO ×2 (02:27→16:02)
--- NOTE | 2020-08-29 02:30 | PC.NURSE ---
MAKAYLA [facility] administration of [place].
[2020-08-29] MEDS: PROMETHAZINE HCL 25 MG/ML AMPUL 12.5 MG IV PUSH (03:08)
[2020-08-29] MEDS: POTASSIUM CHLORIDE 20 MEQ PACKET (FOR LIQUID) PO (03:08)
--- NOTE | 2020-08-29 03:08 | PC.NURSE ---
50mL bag of normal saline used for Phenergan dilution.
[2020-08-29] MEDS: HYDROmorphone HCL INJ (*CRX) 1 MG/ML SYR 0.5 MG IV PUSH (03:46)
--- NOTE | 2020-08-29 04:13 | ED.FALL ---
HPI - Fall General Chief Complaint: Fall Source: patient Mode of arrival: other Limitations: no limitations History of Present Illness HPI Narrative: Patient is an 84-year-old female complaining of right hip pain, 10 out of 10, aching, after she fell prior to arrival. Patient states that she has been having right lower extremity weakness and right upper and lower extremity numbness that started yesterday. Patient's he attributes the fall to the weakness of her right lower extremity. Patient thinks that she has had a mini stroke . Patient denies any speech or visual disturbance, chest pain, shortness of breath, Eleazar pain, nausea, vomiting, fever or chills. Patient denies any loss of consciousness. Patient denies any neck pain or back pain. Related Data Home Medications Medication Instructions Recorded Confirmed rosuvastatin 40 mg tablet 40 mg PO DAILY 07/11/19 06/05/20 nitroglycerin 0.4 mg sublingual 0.4 mg SUBLINGUAL Q5M 07/12/19 06/05/20 tablet metoprolol succinate 25 mg 25 mg PO DAILY 02/06/20 06/05/20 tablet,extended release 24 hr Allergies Allergy/AdvReac Type Severity Reaction Status Date / Time tramadol Allergy Severe Vomiting Verified 02/06/20 13:01 meperidine Allergy Intermediate Vomiting Verified 02/06/20 13:01 Review of Systems Review of Systems: All systems reviewed & are unremarkable except as noted in HPI and below Constitutional: Constitutional: Denies body ache(s), Denies chills, Denies excessive sweating, Denies fatigue, Denies fever(s), Denies headache(s), Denies lethargy, Denies malaise, Denies weakness and Denies weight loss Eyes: Eyes: Denies blurry vision, Denies change in vision and Denies loss of vision ENT: Denies dizziness, Denies ear discharge, Denies headache(s), Denies lip swelling, Denies epistaxis, Denies nasal congestion, Denies neck pain, Denies throat swelling and Denies tongue swelling Cardiovascular: Cardiovascular: Denies chest pain, Denies chest pain at rest, Denies chest pain with activity, Denies diaphoresis, Denies rapid heart rate, Denies edema, Denies irregular heart rhythm, Denies lightheadedness, Denies palpitations, Denies dyspnea and Denies dyspnea on exertion Respiratory: Respiratory: Denies chest congestion, Denies cough, Denies hemoptysis, Denies dyspnea and Denies dyspnea on exertion Gastrointestinal: Gastrointestinal: Denies abdominal pain, Denies melena, Denies hematochezia, Denies diarrhea, Denies nausea, Denies vomiting and Denies hematemesis Musculoskeletal: Musculoskeletal: Denies abnormal gait, Denies deformity, Denies joint swelling, Denies limited range of motion and Denies neck pain Neurologic: Denies Abnormal speech present, Denies abnormal gait, Denies confusion, Denies dizziness, Denies headache(s), Denies loss of vision, Denies numbness, Denies Other visual disturbances and Denies Sensory deficit (Neuro) Psychiatric: Psychiatric: Denies confusion, Denies depression, Denies auditory hallucinations, Denies homicidal ideation and Denies suicidal ideation Endocrine: Endocrine: Denies cold intolerance, Denies excessive sweating, Denies fatigue, Denies heat intolerance and Denies palpitations Hematologic/Lymphatic: Hematologic/Lymphatic: Denies easy bleeding and Denies easy bruising Allergic/Immunologic: Allergic/Immunologic: Denies lip swelling, Denies throat swelling and Denies tongue swelling [facility] Past Medical History Medical History (Updated 08/29/20 @ 04:19 by Elder Mac MD) Atrial fibrillation Breast cancer 2004 with radiation chemotherapy. Right mastectomy CHF (congestive heart failure) Colon cancer History of colectomy no chemo radiation at that time Hypertension Hypertension Osteoporosis Vulvar cancer She was diagnosed in 2016 and had radiation and chemotherapy no longer takes any treatment. Surgical History Surgical History H/O: hysterectomy History of colectomy Histor
[2020-08-29 04:44] LABS: Anion Gap 9 mmol/L (8-16); Blood Urea Nitrogen 17 mg/dL (7-17); Calcium 9.4 mg/dL (8.4-10.2); Carbon Dioxide 26 mmol/L (22-30); Chloride 104 mmol/L (98-107); Estimated CRCL calculation 44 ml/min; Estimated Glomerular Filt Rate > 60; Glucose 136 mg/dL (65-105); Potassium 3.1 mmol/L (3.4-5.0); Sodium 139 mmol/L (137-145)
--- NOTE | 2020-08-29 04:49 | ADMGEN ---
This patient, Flori Oleary, was admitted to [address] [place] [address] Room 315-02 at 0420. Patient/family oriented to hospital policies and general routines including ID bracelet, bed and alarms, visiting hours, pain management, procedures, bathroom and other care routines, personal items, smoking policy, room service/diet, and visiting hours. Information on how to activate the Rapid Response Team has been discussed. Patient/Family are encouraged to report perceived risks to care and to ask questions if they do not understand what they are told or what they should do.
[2020-08-29 04:51] LABS: Hematocrit 39.3 % (37.0-47.0); Hemoglobin 12.6 g/dL (12.0-15.0); Immature Granulocyte Percent A 0.4 % (0-0.5); Lymphocytes Percent Auto 10.9 % (18.3-44.2); Mean Corpuscular HGB Conc 32.1 g/dl (32-36); Mean Corpuscular Hemoglobin 27.9 pg (26-34); Mean Corpuscular Volume 86.9 fl (80-100); Mean Platelet Volume 10.3 fl (7.4-10.4); Neutrophils Percent Auto 81.6 % (45.5-73.1); Platelet Count Result 225 k/mm3 (150-375); Red Blood Count 4.52 M/mm3 (4.2-5.4); Red Cell Distribution Width 15.2 % (11.5-14.5); White Blood Count 8.6 K/mm3 (4.5-10.0)
[2020-08-29 04:52] LABS: Basophils Percent Auto 0.5 % (0.2-1.2); Eosinophils Absolute Auto 0.1 K/mm3 (0-0.3); Eosinophils Percent Auto 1.5 % (0-4.4); Immature Granulocyte Absolute 0.03 K/mm3 (0.00-0.031); Lymphocytes Absolute Auto 0.93 K/mm3 (0.9-3.2); Monocytes Absolute Auto 0.4 K/mm3 (0.1-0.6); Monocytes Percent Auto 5.1 % (2.6-8.5)
[2020-08-29 05:01] LABS: INR 1.2; Partial Thromboplastin Time 32.3 SECONDS (22.3-36.8); Prothrombin Time 16.2 Seconds (11.1-14.7)
[2020-08-29 09:03] LABS: Basophils Percent Auto 0.3 % (0.2-1.2); Eosinophils Percent Auto 0.2 % (0-4.4); Hematocrit 39.4 % (37.0-47.0); Hemoglobin 12.5 g/dL (12.0-15.0); Immature Granulocyte Absolute 0.02 K/mm3 (0.00-0.031); Immature Granulocyte Percent A 0.2 % (0-0.5); Lymphocytes Absolute Auto 0.85 K/mm3 (0.9-3.2); Lymphocytes Percent Auto 9.6 % (18.3-44.2); Mean Corpuscular HGB Conc 31.7 g/dl (32-36); Mean Corpuscular Volume 88.1 fl (80-100); Monocytes Absolute Auto 0.5 K/mm3 (0.1-0.6); Monocytes Percent Auto 6.1 % (2.6-8.5); Neutrophils Absolute Auto 7.4 K/mm3 (1.3-6.7); Neutrophils Percent Auto 83.6 % (45.5-73.1); Platelet Count Result 222 k/mm3 (150-375); Red Blood Count 4.47 M/mm3 (4.2-5.4); Red Cell Distribution Width 15.3 % (11.5-14.5); White Blood Count 8.9 K/mm3 (4.5-10.0)
[2020-08-29 09:16] LABS: Cholesterol 194 mg/dL (0-200); HDL Direct 55 mg/dL; Triglycerides 74 mg/dL (<150)
[2020-08-29 09:17] LABS: Anion Gap 8 mmol/L (8-16); Blood Urea Nitrogen 15 mg/dL (7-17); Calcium 9.2 mg/dL (8.4-10.2); Carbon Dioxide 29 mmol/L (22-30); Chloride 101 mmol/L (98-107); Estimated CRCL calculation 44 ml/min; Estimated Glomerular Filt Rate > 60; Glucose 109 mg/dL (65-105); Magnesium 1.6 mg/dL (1.6-2.3); Potassium 3.6 mmol/L (3.4-5.0); Sodium 138 mmol/L (137-145)
[2020-08-29 09:27] LABS: LDL Cholesterol Direct 115 mg/dL
[2020-08-29] MEDS: DOCUSATE SODIUM 100 MG CAPSULE PO ×2 (09:50→20:31)
[2020-08-29] MEDS: ENOXAPARIN 80 MG/0.8 ML SYRINGE 65 MG SUB-Q ×2 (09:50→20:31)
[2020-08-29] MEDS: lisinopriL 20 MG TABLET PO (09:51)
[2020-08-29] MEDS: ROSUVASTATIN 10 MG TABLET 40 MG PO (09:51)
[2020-08-29] MEDS: FUROSEMIDE 20 MG TABLET PO (09:51)
[2020-08-29] MEDS: hydroCHLOROthiazide 12.5 MG CAPSULE PO (09:51)
[2020-08-29] MEDS: METOPROLOL SUCCINATE EXT REL 12.5 MG TABCR PO (09:52)
[2020-08-29 10:33] LABS: Add Urine Microscopic? YES; Appearance Urine Cloudy (Clear); Bacteria Urine Trace /hpf; Bilirubin Urine Negative (Negative); Blood Urine 1+ (Negative); Color Urine Yellow (Yellow); Glucose Urine UA Negative (Negative); Ketones Urine Negative (Negative); Leukocyte Esterase Ur 1+ LEU/UL (Negative); Mucus Urine Rare /lpf; Nitrate Urine Positive (Negative); Protein Urine 1+ mg/dL (Negative); RBC Urine 0-2 /hpf (0-2); Specific Grav Ur 1.011 (1.001-1.035); Squamous Epithelial Cell Urine Many /hpf (Few); Urobilinogen Urine Negative mg/dL (<2.0); WBC Urine 16-20 /hpf
--- NOTE | 2020-08-29 10:58 | PM.IMHP ---
H&P: HPI History of Present Illness Date/Time: 08/29/20 10:58 Chief Complaint: Hip pain Narrative: This is an 84 year old woman with history of vulvar cancer, Afib on Eliquis, HTN, who presented to the ER after a fall with hip pain. Patient states on Sunday 08/27, she woke up and had heaviness to her right arm and leg. She had trouble getting around and used a walker which she does not normally have 2. She then went to get her 2nd COVID vaccine ([employer]) and came back home period. The patient continued to have some heaviness to her right leg and arm what did not come in for evaluation. The patient went to the bathroom around 11:00 p.m. on 08/28 and while walking into the bathroom using her walker she states her legs gave out . She did report hitting the back of her head on the bathtub. She denies any headache, vision changes, neck pain. She denies any loss of consciousness, lightheadedness, dizziness. The patient was unable to get herself up so she called her grandson who lives in the [facility] next door and him in his came and picked her up. She was not complaining of right hip pain and she was brought to the emergency room for further evaluation. Initial vitals showed afebrile 98.1F, HR 68, RR 17, BP 187/99, O2 99% on RA. Initial labs showed normal CBC other than elevated neutrophil count. Normal coag panel. Hypokalemia at 3.1. Hip and pelvis x-ray showed moderate right osteoarthritis. Left hip bipolar hemiarthroplasty in near anatomic alignment. CT brain showed old infarcts involving bilateral basal cannula and farias radiata. Moderate nonspecific cerebral white matter disease. Patient was admitted to the hospital for pain control, hip pain, further evaluation and work up for possible stroke. Code Status- Full Code POA- Daughter Marilyn Gaytan Review of Systems Review of Systems: All systems reviewed & are unremarkable except as noted in HPI and below [facility] Past Medical History Medical History (Updated 08/29/20 @ 17:28 by Teena Chan PA-C) Atrial fibrillation Breast cancer 2004 with radiation chemotherapy. Right mastectomy CHF (congestive heart failure) Colon cancer History of colectomy no chemo radiation at that time Hypertension Hypertension Osteoporosis Vulvar cancer She was diagnosed in 2016 and had radiation and chemotherapy no longer takes any treatment. Surgical History Surgical History (Updated 08/29/20 @ 16:50 by Teena Chan PA-C) H/O: hysterectomy History of colectomy History of repair of hip joint Left Hx of CABG x3 vessel Status post mastectomy right side Family History Family History Mother Family history of Alzheimer's disease Sibling Family history of pancreatic cancer Hypertension all 4 sisters but 1 has . Colon cancer Other Carcinoma of colon Family history of malignant neoplasm of breast in first degree relative Social History Social History (Updated 08/29/20 @ 16:51 by Teena Chan PA-C) Social History: Patients recently and she took care of him. She now lives alone with her grandson living in the duplex next door with his family. She had 7 biological children adopted 6. So she raced 13 children. 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 She is a full code. POA is her daughter Marilyn Gaytan. Smoking status: Never smoker Second hand tobacco smoke exposure: No Alcohol intake: never Substance use: never Living arrangements: alone Occupation/Education: retired Gender identity (if verbalized by the patient): Female Spiritual care concerns: No Meds Home Medications and Allergies Home Medications Medication Instructions Recorded Confirmed Type rosuvastatin 40 mg tablet 40 mg PO DAILY 07/11/19 08/29/20 History alendronate 70 mg tablet 70 mg PO WEEKLY #12 tablet 07/12/19 08/29/20 Rx ni
--- NOTE | 2020-08-29 12:30 | WPDNEURCNPN ---
Assessment and Plan Assessment and plan (1) Contusion of hip, right: Qualifiers: Encounter type: initial encounter Qualified Code(s): S70.01XA - Contusion of right hip, initial encounter Code(s): S70.01XA - Contusion of right hip, initial encounter Status: Acute (2) Stroke: Code(s): I63.9 - Cerebral infarction, unspecified Status: Acute (3) Atrial fibrillation: Qualifiers: Atrial fibrillation type: unspecified Qualified Code(s): I48.91 - Unspecified atrial fibrillation Code(s): I48.91 - Unspecified atrial fibrillation Status: Chronic Additional Plan right hemiparetic with history of recurrent falls at home will benefit from the therapy at present receiving apixaban 2.5 mg b.i.d. along with other medication treatment will be continued as such Consult date: 08/29/20 Time Seen: 12:30 HPI: Flori Oleary is a 84 year old female admitted to the hospital for the complaints of right hip pain 02/10, and with the history that she fell at home prior to the arrival. He complained of having intermittent right lower extremity and right upper and lower extremity numbness since day before he gave no history of visual or speech difficulties. Evaluation up until non documented her routine CBC, routine coagulation profile with PT of 16.2, normal BMP abnormal UA and CT scan of the head revealing bilateral basal gangliar and coronal radiata old infarct, moderate right hip osteoarthritis on plain x-rays in addition to left hip bipolar arthroplasty, echocardiogram with moderate mitral valve regurgitation mild aortic valve regurgitation and also mild to moderate tricuspid valve regurgitation Review of Systems Review of Systems: All systems reviewed & are unremarkable except as noted in HPI and below [facility] Past Medical History Medical History (Updated 08/29/20 @ 12:39 by Memo French MD) Atrial fibrillation Breast cancer 2004 with radiation chemotherapy. Right mastectomy CHF (congestive heart failure) Colon cancer History of colectomy no chemo radiation at that time Hypertension Hypertension Osteoporosis Vulvar cancer She was diagnosed in 2016 and had radiation and chemotherapy no longer takes any treatment. Surgical History Surgical History H/O: hysterectomy History of colectomy History of repair of hip joint she broke both hips but only the level was repaired. Hx of CABG 1 vessel donor site left Status post mastectomy right side Family History Family History Mother Family history of Alzheimer's disease Sibling Family history of pancreatic cancer Hypertension all 4 sisters but 1 has . Colon cancer Other Carcinoma of colon Family history of malignant neoplasm of breast in first degree relative Social History Social History Social History: she takes care of her who has had end-stage Alzheimer's and he is on hospice. She had 7 biological children adopted 6. So she raced 13 children. 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 She is a full code. Her son candido oleary who and her daughter Marilyn Gaytan. Smoking status: Never smoker Second hand tobacco smoke exposure: No Alcohol intake: never Substance use: never Gender identity (if verbalized by the patient): Female Spiritual care concerns: No Meds Home Medications and Allergies Home Medications Medication Instructions Recorded Confirmed Type rosuvastatin 40 mg tablet 40 mg PO DAILY 07/11/19 08/29/20 History alendronate 70 mg tablet 70 mg PO WEEKLY #12 tablet 07/12/19 08/29/20 Rx nitroglycerin 0.4 mg sublingual 0.4 mg SUBLINGUAL Q5M PRN 07/12/19 08/29/20 History tablet furosemide 20 mg tablet 20 mg PO DAILY #30 tablet 02/01/20 08/29/20 Rx met
[2020-08-29] MEDS: PANTOPRAZOLE SODIUM IV 40 MG VIAL IV PUSH ×2 (12:35→20:31)
[2020-08-29] MEDS: ACETAMINOPHEN 325 MG TABLET 650 MG PO (12:43)
--- NOTE | 2020-08-29 18:31 | PC.NURSE ---
attempted to insert bush cath 16 faroese, x3 , was unable to insert ally notified consult for urology done post void bladder scan results 356, after 250 cc results. alexandra boiler house supervisor attempted to insert 14 fr bush unable to insert.
[2020-08-29] MEDS: HYDROcodone/acetaminophen (*CRX) 7.5-325 MG TABLET 1 TAB PO (20:30)
[2020-08-30] VITALS (7 sets, daily range): BP systolic 136–167; BP diastolic 59–73; PULSE 45–91; RESP 16–22; TEMP 36.2–36.9; O2SAT 92–97
[2020-08-30] MEDS: HYDROcodone/acetaminophen (*CRX) 7.5-325 MG TABLET 1 TAB PO (05:40)
[2020-08-30 06:14] LABS: Basophils Percent Auto 0.4 % (0.2-1.2); Eosinophils Absolute Auto 0.1 K/mm3 (0-0.3); Eosinophils Percent Auto 1.7 % (0-4.4); Hematocrit 40.1 % (37.0-47.0); Hemoglobin 13.1 g/dL (12.0-15.0); Immature Granulocyte Absolute 0.02 K/mm3 (0.00-0.031); Immature Granulocyte Percent A 0.3 % (0-0.5); Lymphocytes Absolute Auto 0.87 K/mm3 (0.9-3.2); Lymphocytes Percent Auto 12.4 % (18.3-44.2); Mean Corpuscular HGB Conc 32.7 g/dl (32-36); Mean Corpuscular Hemoglobin 27.9 pg (26-34); Mean Corpuscular Volume 85.5 fl (80-100); Monocytes Absolute Auto 0.5 K/mm3 (0.1-0.6); Monocytes Percent Auto 6.4 % (2.6-8.5); Neutrophils Absolute Auto 5.5 K/mm3 (1.3-6.7); Neutrophils Percent Auto 78.8 % (45.5-73.1); Platelet Count Result 222 k/mm3 (150-375); Red Blood Count 4.69 M/mm3 (4.2-5.4); Red Cell Distribution Width 15.4 % (11.5-14.5)
[2020-08-30 06:28] LABS: Anion Gap 6 mmol/L (8-16); Blood Urea Nitrogen 18 mg/dL (7-17); Calcium 9.2 mg/dL (8.4-10.2); Carbon Dioxide 30 mmol/L (22-30); Chloride 97 mmol/L (98-107); Estimated CRCL calculation 35 ml/min; Estimated Glomerular Filt Rate 60; Glucose 99 mg/dL (65-105); Magnesium 1.6 mg/dL (1.6-2.3); Potassium 3.1 mmol/L (3.4-5.0); Sodium 133 mmol/L (137-145)
--- NOTE | 2020-08-30 06:43 | WPDURCON ---
Assessment and Plan Assessment and plan (1) Vulvar cancer: Code(s): C51.9 - Malignant neoplasm of vulva, unspecified Status: Chronic (2) Stroke: Code(s): I63.9 - Cerebral infarction, unspecified Status: Acute (3) Transient ischemic attack: Code(s): G45.9 - Transient cerebral ischemic attack, unspecified Status: Acute Assessment and Plan: Decision is made to proceed with orthopedic surgery would probably be prudent to have an indwelling Michael catheter postoperatively, and till she is ambulatory. If so, I will try to arrange to be available to place the catheter under anesthesia. If she is not having surgery, I do not see an indication for placement of a catheter at this time. Urology Consult Note HPI Date Seen: 08/30/20 Requesting Physician: Teena Chan PA-C Primary Care Provider: Sal Austin DO Consult Narrative Narrative: Flori Oleary is a 84 year old female, without a history of voiding dysfunction, admitted through the ER after suffering a fall with subsequent hip fracture. There is also some question she may have had a small CVA. In anticipation of possible orthopedic surgery the nurses tried to place a Michael catheter without success. Patient has a history of vulvar cancer treated with chemo radiation and, reportedly, her genital anatomy is distorted. Patient denies difficulty voiding. She has been voiding on the bedpan with residual volumes of 200-300 cc by BladderScan. She denies a history of recurring urinary tract infection or hematuria. Review of Systems Cardiovascular: Cardiovascular: Denies chest pain, Denies lightheadedness, Denies palpitations and Denies dyspnea Respiratory: Respiratory: Denies dyspnea Gastrointestinal: Gastrointestinal: Denies diarrhea, Denies nausea and Denies vomiting Genitourinary: Genitourinary: Denies hematuria and Denies dysuria Endocrine: Endocrine: Denies palpitations PMFSH Past Medical History Medical History Atrial fibrillation Breast cancer 2004 with radiation chemotherapy. Right mastectomy CHF (congestive heart failure) Colon cancer History of colectomy no chemo radiation at that time Hypertension Hypertension Osteoporosis Vulvar cancer She was diagnosed in 2016 and had radiation and chemotherapy no longer takes any treatment. Surgical History Surgical History H/O: hysterectomy History of colectomy History of repair of hip joint Left Hx of CABG x3 vessel Status post mastectomy right side Family History Family History Mother Family history of Alzheimer's disease Sibling Family history of pancreatic cancer Hypertension all 4 sisters but 1 has . Colon cancer Other Carcinoma of colon Family history of malignant neoplasm of breast in first degree relative Social History Social History Social History: Patients recently and she took care of him. She now lives alone with her grandson living in the duplex next door with his family. She had 7 biological children adopted 6. So she raced 13 children. 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 She is a full code. POA is her daughter Marilyn Gaytan. Smoking status: Never smoker Second hand tobacco smoke exposure: No Alcohol intake: never Substance use: never Living arrangements: alone Occupation/Education: retired Gender identity (if verbalized by the patient): Female Spiritual care concerns: No Meds Home Medications and Allergies Home Medications Medication Instructions Recorded Confirmed Type rosuvastatin 40 mg tablet 40 mg PO DAILY 07/11/19 08/29/20 History alendronate 70 mg tablet 70 mg PO WEEK
--- NOTE | 2020-08-30 07:06 | ECG_ITS ---
Measurements Intervals [place] Rate: 76 P: SD: 0 QRS: -47 QRSD: 118 T: 139 QT: 465 QTc: 525 Interpretive Statements ATRIAL FIBRILLATION VENTRICULAR PREMATURE COMPLEXES LEFT AXIS DEVIATION INCOMPLETE LEFT BUNDLE BRANCH BLOCK LEFT VENTRICULAR HYPERTROPHY WITH ST-T CHANGE CANNOT RULE OUT SEPTAL INFARCT, AGE INDETERMINATE ABNORMAL ECG Electronically Signed On 08-30-2020 9:05:32 CDT by Ben Gatica D.O.
[2020-08-30] MEDS: ONDANSETRON INJ 4 MG/2 ML VIAL IV PUSH (07:13)
--- NOTE | 2020-08-30 07:17 | PM.CNOR ---
Assessment and Plan Assessment and plan (1) Fracture of greater trochanter of right femur: Qualifiers: Encounter type: initial encounter Fracture type: closed Fracture alignment: nondisplaced Qualified Code(s): S72.114A - Nondisplaced fracture of greater trochanter of right femur, initial encounter for closed fracture Code(s): S72.111A - Displaced fracture of greater trochanter of right femur, initial encounter for closed fracture Status: Acute Assessment and Plan: New patient evaluation status post injury right hip. The history, physical exam and radiographs reviewed with the patient. Type of fracture discussed in detail. Treatment options including operative and non operative treatment reviewed. Risks, benefits and alternatives of each treatment discussed in detail. The patient has declined surgical treatment. Risks of treatment decision discussed in detail. Potential problems with displacement of the fracture, loss of alignment, nonunion, malunion and dysfunction discussed in detail. The patient's questions were answered. They verbalized understanding and agreement. Conservative treatment with immobilization, ice, compression and elevation. Patient currently being evaluated for stroke and possibly new onset right arm weakness. We will continue to follow results of workup. If cleared will start rehab for the right hip with physical therapy/occupational therapy for protected weight-bearing and assistance with mobility right leg. History of Present Illness HPI Consult date: 08/30/20 Requesting physician: Teena Chan PA-C Consult reason: fracture (RT hip fx) Chief complaint: TIA, White hip contusion, hypokalemia Narrative: 84-year-old woman found to have right proximal femur fracture on CT scan of the abdomen and pelvis. Patient complains of right hip pain. Also found to have stroke. By nurses report complained of increased right sided weakness this morning. She is currently being evaluated by the hospitalist team for that. In addition, right hip with pain which is worse with motion and activity. Better if she rests. No prior problems with the right hip. She has had prior surgery on the left side. Review of Systems Review of Systems: All systems reviewed & are unremarkable except as noted in HPI and below Constitutional: Constitutional: Denies body ache(s), Denies chills, Denies excessive sweating, Denies fatigue, Denies fever(s), Denies headache(s), Denies lethargy, Denies malaise, Denies weakness and Denies weight loss Eyes: Eyes: Denies blurry vision, Denies change in vision and Denies loss of vision ENT: Denies dizziness, Denies ear discharge, Denies headache(s), Denies lip swelling, Denies epistaxis, Denies nasal congestion, Denies neck pain, Denies throat swelling and Denies tongue swelling Cardiovascular: Cardiovascular: Denies chest pain, Denies chest pain at rest, Denies chest pain with activity, Denies diaphoresis, Denies rapid heart rate, Denies edema, Denies irregular heart rhythm, Denies lightheadedness, Denies palpitations, Denies dyspnea and Denies dyspnea on exertion Respiratory: Respiratory: Denies chest congestion, Denies cough, Denies hemoptysis, Denies dyspnea and Denies dyspnea on exertion Gastrointestinal: Gastrointestinal: Denies abdominal pain, Denies melena, Denies hematochezia, Denies diarrhea, Denies nausea, Denies vomiting and Denies hematemesis Musculoskeletal: Musculoskeletal: Denies abnormal gait, Denies deformity, Denies limited range of motion and Denies neck pain Neurologic: Denies Abnormal speech present, Denies abnormal gait, Denies confusion, Denies dizziness, Denies headache(s), Denies loss of vision, Denies numbness, Denies Other visual disturbances and Denies Sensory deficit (Neuro) Psychiatric: Psychiatric: Denies confusion, Denies depression, Denies auditory hallucinations, Denies homicidal ideation and Denies suicidal ideation Endocrine: Endocrine: Denies
[2020-08-30] MEDS: ASPIRIN 81 MG ENTERIC TABLET PO (08:19)
[2020-08-30] MEDS: ROSUVASTATIN 10 MG TABLET 40 MG PO (08:20)
[2020-08-30] MEDS: ENOXAPARIN 80 MG/0.8 ML SYRINGE 65 MG SUB-Q ×2 (08:20→20:23)
[2020-08-30] MEDS: DOCUSATE SODIUM 100 MG CAPSULE PO ×2 (08:21→20:23)
[2020-08-30] MEDS: PANTOPRAZOLE SODIUM IV 40 MG VIAL IV PUSH ×2 (08:21→20:23)
[2020-08-30] MEDS: POTASSIUM CHLORIDE 20 MEQ TABLET 40 MEQ PO (08:32)
[2020-08-30] MEDS: MAGNESIUM SULF 2 GM/WATER 50ML 2 GM/50 ML BAG IVPB (08:33)
[2020-08-30 09:01] LABS: Troponin I 0.023 ng/mL (0.000-0.034)
--- NOTE | 2020-08-30 10:48 | PM.IMPN ---
Progress Note: A&P Assessment and Plan (1) Stroke: Code(s): I63.9 - Cerebral infarction, unspecified Status: Acute Assessment and Plan: Patient having right leg and arm heaviness for the last few days, still slightly present at this time. MRI brain showed Acute infarct involving posterior limb left internal capsule. Old infarcts in the bilateral basal ganglia and farias radiata. Carotid Doppler shows <50% stenosis in the right internal carotid artery. 50-69% stenosis in the left internal carotid artery. Echo completed 12/08/19 showing normal EF, normal diastolic function, enlarged atrium bilaterally. Severe pulmonary HTN. Lipid panel was checked and LDL is elevated 115. Normal total cholesterol. She is already on rosuvastatin 40 mg. May need something stronger like Repatha to get LDL less than 70. Patient with worsening right sided weakness and facial droop at this time. Ordered STAT CT Head which showed stable acute stroke. CTA Head & Neck ordered showing Probable small acute left periventricular lacunar infarction. 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 Right carotid bulb 45% stenosis, left carotid bulb 30% stenosis. Short segment severe stenosis right anterior cerebral artery. Talked with the neurologist who recommends continuing anticoagulation but concerned for aneurysn rupture and recommended transfer to neurosurgery. Talked to the patient's family in length about her acute problems: Acute stroke, hip fracture, possible metastatic cancer and need for possible transfer to a neurosurgeon. The patient states she would like to go home on hospice. Family would like to consult with [facility] today at 3pm. Continue anticoagulation at this time. Neuro checks. Neurology's input is greatly appreciated. Monitor blood pressure. (2) Hip fracture: Code(s): S72.009A - Fracture of unspecified part of neck of unspecified femur, initial encounter for closed fracture Status: Acute Assessment and Plan: Patient was found to have an acute oblique fracture of the greater trochanter of proximal right femur in near-anatomic alignment. Orthopedic surgery evaluated the patient and recommends non operative therapy. Continue PT OT and pain control Continue monitoring. (3) Acute hypokalemia: Code(s): E87.6 - Hypokalemia Status: Acute Assessment and Plan: Replenished. Will recheck in the morning. (4) Atrial fibrillation: Qualifiers: Atrial fibrillation type: unspecified Qualified Code(s): I48.91 - Unspecified atrial fibrillation Code(s): I48.91 - Unspecified atrial fibrillation Status: Chronic Assessment and Plan: Chronic atrial fibrillation, on Eliquis 2.5 mg. She reports taking her medication as prescribed not missing any doses. Based on her weight, age and creatinine she should be on 5 mg b.i.d. Continue Lovenox by weight q.12 at this time (5) Vulvar cancer: Code(s): C51.9 - Malignant neoplasm of vulva, unspecified Status: Chronic Assessment and Plan: She had chemo and radiation. She considered reconstructive surgery but declined. (6) Hypertension: Qualifiers: Hypertension type: essential hypertension Qualified Code(s): I10 - Essential (primary) hypertension Code(s): I10 - Essential (primary) hypertension Status: Chronic Assessment and Plan: Blood pressure 157/71. Elevated. Continue home medications. Continue monitoring (7) HLD (hyperlipidemia): Code(s): E78.5 - Hyperlipidemia, unspecified Status: Acut
[2020-08-30 11:53] LABS: Troponin I 0.022 ng/mL (0.000-0.034)
[2020-08-30] MEDS: HYDROcodone/acetaminophen (*CRX) 5-325 MG TABLET 1 TAB PO (20:24)
[2020-08-31] VITALS: BP 150/61; PULSE 75; RESP 16; TEMP 36.6; O2SAT 95
[2020-08-31 04:00] VITALS: BP 168/61; PULSE 76; RESP 16; TEMP 36.2; O2SAT 97
[2020-08-31] MEDS: HYDROcodone/acetaminophen (*CRX) 7.5-325 MG TABLET 1 TAB PO (05:57)
--- NOTE | 2020-08-31 06:58 | WPDUROPN2 ---
Progress Note: A&P Assessment and Plan (1) Fracture of greater trochanter of right femur: Qualifiers: Encounter type: initial encounter Fracture type: closed Fracture alignment: nondisplaced Qualified Code(s): S72.114A - Nondisplaced fracture of greater trochanter of right femur, initial encounter for closed fracture Code(s): S72.111A - Displaced fracture of greater trochanter of right femur, initial encounter for closed fracture Status: Acute (2) Vulvar cancer: Code(s): C51.9 - Malignant neoplasm of vulva, unspecified Status: Chronic Assessment and Plan: Pt. voiding well and no plans for orthopedic surgery. I will NOT plan to place a Michael catheter. Subjective Subjective Date/Time Seen: 08/31/20 06:58 Comfortable, voiding well Review of Systems Cardiovascular: Cardiovascular: Denies chest pain, Denies lightheadedness, Denies palpitations and Denies dyspnea Respiratory: Respiratory: Denies dyspnea Gastrointestinal: Gastrointestinal: Denies diarrhea, Denies nausea and Denies vomiting Genitourinary: Genitourinary: Denies hematuria and Denies dysuria Endocrine: Endocrine: Denies palpitations Exam Const: General: no acute distress Resp: Effort & Inspection: normal respiratory effort GI: Inspection: non-distended GI Palp: No abdominal tenderness and No Guarding due to palpation present (GI) Auscultation: normal bowel sounds Objective Data Vital Signs Vital Signs: Vital Signs - 24 hr 08/30/20 09:04 08/30/20 12:00 08/30/20 16:00 Temperature 98.1 F 98.4 F 98.0 F Pulse Rate 83 68 61 Respiratory Rate 18 18 18 Blood Pressure 136/73 151/72 H 148/63 H Pulse Oximetry 92 95 97 08/30/20 18:17 08/30/20 20:00 08/31/20 00:00 Temperature 97.5 F L 97.8 F Pulse Rate 48 L 88 75 Respiratory Rate 16 16 Blood Pressure 167/59 H 150/61 H Pulse Oximetry 93 95 08/31/20 04:00 Temperature 97.2 F L Pulse Rate 76 Respiratory Rate 16 Blood Pressure 168/61 H Pulse Oximetry 97 Intake/Output Intake/Output: Intake & Output 08/28/20 08/29/20 08/30/20 08/31/20 23:59 23:59 23:59 23:59 Intake Total 540 905 150 Output Total 1500 1075 300 Balance -960 -170 -150 Meds/Results Medications: Active Medications Generic Name Dose Route Start Last Admin Trade Name Freq PRN Reason Stop Dose Admin Acetaminophen 650 mg 08/29/20 08:38 08/29/20 12:43 Acetaminophen 325 Mg Tablet PO 650 mg Q4H PRN Administration Mild Pain (1-3) or Fever Hydrocodone Bitart/Acetaminophen 1 tab 08/29/20 15:42 08/30/20 20:24 Hydrocodone/Acetaminophen (*Crx) 5-325 Mg Tablet PO 1 tab Q4H PRN Administration Pain Rated 4-6 Hydrocodone Bitart/Acetaminophen 1 tab 08/29/20 15:42 08/31/20 05:57 Hydrocodone/Acetaminophen (*Crx) 7.5-325 Mg Tablet PO 1 tab Q4H PRN Administration Pain Rated 7-10 Aspirin 81 mg 08/30/20 09:00 08/30/20 08:19 Aspirin 81 Mg Enteric Tablet PO 81 mg QAM BRAD Administration Docusate Sodium 100 mg 08/29/20 09:00 08/30/20 20:23 Docusate Sodium 100 Mg Capsule PO 100 mg Q12HR BRAD Administration Enoxaparin Sodium 65 mg 08/29/20 09:00 08/30/20 20:23 Enoxaparin 80 Mg/0.8 Ml Syringe SUB-Q 65 mg Q12HR BRAD Administration Furosemide 20 mg 08/29/20 09:00 08/30/20 11:03 Furosemide 20 Mg Tablet PO Not Given DAILY BRAD Lisinopril 20 mg 08/29/20 09:00 08/30/20 18:17 Lisinopril 20 Mg Tablet PO Not Given QAM BRAD Metoprolol Succinate 12.5 mg 08/29/20 09:00 08/30/20 18:17 Metoprolol Succinate Ext Rel 12.5 Mg Tabcr PO Not Given DAILY BRAD Nitroglycerin 0.4 mg 08/29/20 08:45 Nitroglycerin Sl 0.4 Mg Tablet SUBLINGUAL Q5M PRN Chest Pain Ondansetron HCl 4 mg 08/30/20 07:08 08/30/20 07:13 Ondansetron Inj 4 Mg/2 Ml Vial IV PUSH 4 mg Q4H PRN Administration Nausea And Vomiting Pantoprazole Sodium 40 mg 08/29/20 09:50 08/30/20 20:23 Pantoprazole So
[2020-08-31] MEDS: ASPIRIN 81 MG ENTERIC TABLET PO (07:48)
[2020-08-31] MEDS: lisinopriL 20 MG TABLET PO (07:48)
[2020-08-31] MEDS: DOCUSATE SODIUM 100 MG CAPSULE PO (07:48)
[2020-08-31] MEDS: ENOXAPARIN 80 MG/0.8 ML SYRINGE 65 MG SUB-Q (07:48)
[2020-08-31 07:49] VITALS: PULSE 66
[2020-08-31] MEDS: PANTOPRAZOLE SODIUM IV 40 MG VIAL IV PUSH (07:49)
[2020-08-31] MEDS: METOPROLOL SUCCINATE EXT REL 12.5 MG TABCR PO (07:49)
[2020-08-31] MEDS: ROSUVASTATIN 10 MG TABLET 40 MG PO (07:49)
--- NOTE | 2020-08-31 08:28 | PM.PNORT ---
Progress Note: A&P Assessment and Plan (1) Fracture of greater trochanter of right femur: Qualifiers: Encounter type: subsequent encounter Fracture type: closed Fracture alignment: nondisplaced Fracture healing: with routine healing Qualified Code(s): S72.114D - Nondisplaced fracture of greater trochanter of right femur, subsequent encounter for closed fracture with routine healing Code(s): S72.111A - Displaced fracture of greater trochanter of right femur, initial encounter for closed fracture Status: Acute Assessment and Plan: Right proximal femur fracture status post stroke. Discussed once again with patient. She is not interested in surgical treatment. If fracture remains aligned should have high potential for healing. May mobilize with assistance and therapy. Weightbearing as tolerated. Patient and family considering hospice. Will continue to follow peripherally. Subjective Subjective Date/Time Seen: 08/31/20 08:28 Patient awake and alert. Complains of right arm and leg weakness. Right hip pain with movement. Exam Const: General: No confusion Orientation/consciousness: patient oriented x3 and No confusion HENMT: Head: normal to inspection, normocephalic and atraumatic Eyes: Conjunctivae: conjunctivae normal Sclera: sclerae normal Chest: Chest palpation & inspection: normal inspection of the chest Resp: Effort & Inspection: normal respiratory effort and no audible wheezes Cardio: Rate: regular rate GI: GI Palp: No abdominal tenderness and Yes Soft to palpation : General: Yes deferred Skin: General skin exam: no rashes or lesions noted Neuro: General: patient oriented x3 and No confusion Extrem: General: capillary refill normal Right upper extremity: normal to inspection Left upper extremity: normal to inspection Right lower extremity: hip/thigh Details: tenderness Location: of the hip Location: laterally and swelling Location: at the hip ( mild), ankle ( able to actively flex and extend ankle) and foot Left lower extremity: normal to inspection, hip/thigh, lower leg, ankle (no calf tenderness) and foot Psych: Affect: normal affect Objective Data Vital Signs Vital Signs: Vital Signs - 24 hr 08/30/20 09:04 08/30/20 12:00 08/30/20 16:00 Temperature 98.1 F 98.4 F 98.0 F Pulse Rate 83 68 61 Respiratory Rate 18 18 18 Blood Pressure 136/73 151/72 H 148/63 H Pulse Oximetry 92 95 97 08/30/20 18:17 08/30/20 20:00 08/31/20 00:00 Temperature 97.5 F L 97.8 F Pulse Rate 48 L 88 75 Respiratory Rate 16 16 Blood Pressure 167/59 H 150/61 H Pulse Oximetry 93 95 08/31/20 04:00 08/31/20 07:49 Temperature 97.2 F L Pulse Rate 76 66 Respiratory Rate 16 Blood Pressure 168/61 H Pulse Oximetry 97 Intake/Output Intake/Output: Intake & Output 08/28/20 08/29/20 08/30/20 08/31/20 23:59 23:59 23:59 23:59 Intake Total 540 905 150 Output Total 1500 1075 300 Balance -960 -170 -150 Meds/Results Medications: Active Medications Generic Name Dose Route Start Last Admin Trade Name Freq PRN Reason Stop Dose Admin Acetaminophen 650 mg 08/29/20 08:38 08/29/20 12:43 Acetaminophen 325 Mg Tablet PO 650 mg Q4H PRN Administration Mild Pain (1-3) or Fever Hydrocodone Bitart/Acetaminophen 1 tab 08/29/20 15:42 08/30/20 20:24 Hydrocodone/Acetaminophen (*Crx) 5-325 Mg Tablet PO 1 tab Q4H PRN Administration Pain Rated 4-6 Hydrocodone Bitart/Acetaminophen 1 tab 08/29/20 15:42 08/31/20 05:57 Hydrocodone/Acetaminophen (*Crx) 7.5-325 Mg Tablet PO 1 tab Q4H PRN Administration Pain Rated 7-10 Aspirin 81 mg 08/30/20 09:00 08/31/20 07:48 Aspirin 81 Mg Enteric Tablet PO 81 mg QAM BRAD Administration Docusate Sodium 100 mg 08/29/20 09:00 08/31/20 07:48 Docusate Sodium 100 Mg Capsule PO 100 mg Q12HR BRAD Administration Enoxaparin Sodium 65 mg 08/29/20 09:00 08/31/20 07:48 Enoxaparin 80 Mg/0.8
--- NOTE | 2020-08-31 11:49 | PM.DS ---
DS: Admitting Diagnosis Admitting Diagnosis Admitting Diagnosis: Extremity pain and heaviness DS: Discharge Diagnosis Discharge Diagnosis (1) Stroke: Code(s): I63.9 - Cerebral infarction, unspecified Status: Acute Assessment and Plan: This is an 84 year old woman with history of vulvar cancer, Afib on Eliquis, HTN, who presented to the ER after a having heaviness to right arm and leg and sustaining a fall at home now having right hip pain. Initial vitals showed afebrile 98.1F, HR 68, RR 17, BP 187/99, O2 99% on RA. Initial labs showed normal CBC other than elevated neutrophil count. Normal coag panel. Hypokalemia at 3.1. Hip and pelvis x-ray showed moderate right osteoarthritis. Left hip bipolar hemiarthroplasty in near anatomic alignment. CT brain showed old infarcts involving bilateral basal cannula and farias radiata. Moderate nonspecific cerebral white matter disease. Patient was admitted to the hospital for pain control, hip pain, further evaluation and work up for possible stroke. MRI brain showed Acute infarct involving posterior limb left internal capsule. Old infarcts in the bilateral basal ganglia and farias radiata. Carotid Doppler shows <50% stenosis in the right internal carotid artery. 50-69% stenosis in the left internal carotid artery. Echo completed 12/08/19 showing normal EF, normal diastolic function, enlarged atrium bilaterally. Severe pulmonary HTN. Lipid panel was checked and LDL is elevated 115. Normal total cholesterol. She is already on rosuvastatin 40 mg. May need something stronger like Repatha to get LDL less than 70. 08/30/20- Patient with worsening right sided weakness and facial droop upon waking up. STAT CT Head which showed stable acute stroke. CTA Head & Neck ordered showing Probable small acute left periventricular lacunar infarction. 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 Right carotid bulb 45% stenosis, left carotid bulb 30% stenosis. Short segment severe stenosis right anterior cerebral artery. Talked with the neurologist who recommends continuing anticoagulation but concerned for aneurysn rupture and recommended transfer to neurosurgery. Talked to the patient's family in length about her acute problems: Acute stroke, hip fracture, possible metastatic cancer and need for possible transfer to a neurosurgeon. The patient states she would like to go home on hospice. Patient was discharged home with [facility] today. She is stable upon discharge. (2) Hip fracture: Code(s): S72.009A - Fracture of unspecified part of neck of unspecified femur, initial encounter for closed fracture Status: Acute Assessment and Plan: Patient was found to have an acute oblique fracture of the greater trochanter of proximal right femur in near-anatomic alignment. Orthopedic surgery evaluated the patient and recommends non operative therapy. Continue Pain control and weight bearing as tolerated. (3) Acute hypokalemia: Code(s): E87.6 - Hypokalemia Status: Acute Assessment and Plan: Replenished. (4) Atrial fibrillation: Qualifiers: Atrial fibrillation type: unspecified Qualified Code(s): I48.91 - Unspecified atrial fibrillation Code(s): I48.91 - Unspecified atrial fibrillation Status: Chronic Assessment and Plan: Chronic atrial fibrillation, on Eliquis 2.5 mg. She reports taking her medication as prescribed not missing any doses. Based on her weight, age and creatinine she should be on 5 mg b.i.d. Continue Eliquis at 5 mg BID (5) Vulvar cancer: Code(s): C51.9 - Malignant neoplasm of vulva, unspecified Status: Chronic Assess
== END 2020-08-31 13:25 | disposition hospice, home (50) | DRG 64 ==
LOC: ANHED 04:19 → ANH3MEDSUR 04:45
PROVIDERS: Physician Assistant; Admitting Provider Internal Medicine; Emergency Provider Emergency Medicine; PCP Internal Medicine; Visit Provider Internal Medicine
DX: I63.9 Cerebral infarction, unspecified (principal); S72.114A Nondisplaced fracture of greater trochanter of right femur, initial encounter for closed fracture; E87.6 Hypokalemia; I48.91 Unspecified atrial fibrillation; I10 Essential (primary) hypertension; Z85.3 Personal history of malignant neoplasm of breast; Z85.038 Personal history of other malignant neoplasm of large intestine; W19.XXXA Unspecified fall, initial encounter; C51.9 Malignant neoplasm of vulva, unspecified
CPT/HCPCS: 36415; 70450; 70496; 70498; 70551; 72192; 73502; 78306; 80048; 80061; 81001; 83735; 84484; 85025; 85610; 85730; 87086; 87088; 93005; 93880; 96372; 96375; 97161; 97166; 99285; A9270; A9561; C9113; G0378; J1170; J1650; J2405; J2550; J3475; Q9967

== ENCOUNTER 2020-12-10 09:39 | Outpatient (CLI) | payer MEDICARE, SELFPAY ==
[2020-12-10 10:03] LABS: Basophils Percent Auto 0.4 % (0.2-1.2); Eosinophils Absolute Auto 0.1 K/mm3 (0-0.3); Eosinophils Percent Auto 1.3 % (0-4.4); Hematocrit 37.4 % (37.0-47.0); Hemoglobin 11.5 g/dL (12.0-15.0); Immature Granulocyte Absolute 0.02 K/mm3 (0.00-0.031); Immature Granulocyte Percent A 0.3 % (0-0.5); Lymphocytes Absolute Auto 0.56 K/mm3 (0.9-3.2); Lymphocytes Percent Auto 7.6 % (18.3-44.2); Mean Corpuscular HGB Conc 30.7 g/dl (32-36); Mean Corpuscular Hemoglobin 28.7 pg (26-34); Mean Corpuscular Volume 93.3 fl (80-100); Mean Platelet Volume 9.8 fl (7.4-10.4); Monocytes Absolute Auto 0.5 K/mm3 (0.1-0.6); Monocytes Percent Auto 6.3 % (2.6-8.5); Neutrophils Absolute Auto 6.2 K/mm3 (1.3-6.7); Neutrophils Percent Auto 84.1 % (45.5-73.1); Platelet Count Result 275 k/mm3 (150-375); Red Blood Count 4.01 M/mm3 (4.2-5.4); Red Cell Distribution Width 16.5 % (11.5-14.5); White Blood Count 7.4 K/mm3 (4.5-10.0)
[2020-12-10 10:32] LABS: Alanine Aminotransferase 12 U/L (4-35); Albumin Level 3.8 g/dL (3.5-5.1); Alkaline Phosphatase 97 U/L (38-126); Anion Gap 7 mmol/L (8-16); Aspartate Amino Transferase 20 U/L (14-36); Bilirubin,Total 0.6 mg/dL (0.2-1.3); Blood Urea Nitrogen 15 mg/dL (7-17); Calcium 9.4 mg/dL (8.4-10.2); Carbon Dioxide 27 mmol/L (22-30); Chloride 101 mmol/L (98-107); Estimated Glomerular Filt Rate 47; Glucose 97 mg/dL (65-110); Magnesium 1.8 mg/dL (1.6-2.3); Potassium 3.2 mmol/L (3.4-5.0); Sodium 135 mmol/L (137-145)
== END 2020-12-10 09:40 | disposition home or self-care (01) ==
PROVIDERS: PCP Internal Medicine; Visit Provider Internal Medicine
DX: I48.91 Unspecified atrial fibrillation (principal); E87.8 Other disorders of electrolyte and fluid balance, not elsewhere classified
CPT/HCPCS: 36415; 80053; 83735; 85025

== ENCOUNTER 2021-02-21 10:00 | Outpatient (RCR) | payer MEDICARE, SELFPAY ==
--- NOTE | 2020-12-27 15:07 | PTOPEVAL ---
PHYSICAL THERAPY EVALUATION AND PLAN OF CARE Thank you for referring Flori Oleary to [facility] [place] [facility] [place] The patient is scheduled to be seen for therapy? 2x/week for 4 weeks. Please review, sign, date and return this plan of care [email or web address]. I agree with and certify that the following plan of care is medically necessary. Referring Physician Date Attending Provider: Sal Austin, DO Evaluation Hx Cerebrovascular Accident (CVA) Yes: right side affected 2020 Hx Transient Ischemic Attacks (TIA) Yes Cardiovascular History Hx Atrial Fibrillation Yes Hx Cardiac Catheterization Yes Hx Cardiac Surgery Yes: bypass surgery Hx Congestive Heart Failure Yes Hx Coronary Stent Yes Hx Hypertension Yes Respiratory History Hx Respiratory Disorders No Significant History Gastrointestinal History Hx Colorectal Cancer Yes Genitourinary History Hx Renal Disease Yes Musculoskeletal History Hx Arthritis Yes: bilateral knees/bilateral wrists Hx Fractures Yes: lt hip, left upper arm Hx Joint Replacement Yes: lt hip Hx Orthopedic Surgery Yes: lt hip andf left arm Hematological History Hx Hematological Disorders No Significant History Endocrine History Hx Endocrine Disorders No Significant History HEENT History Hx Cataracts Yes: left eye cataract removed 10 years ago Integumentary History Hx Skin Disorders No Significant History Reproductive History Hx Mastectomy Yes: right 2004 Hx Other Reproductive Disorders Yes: vulvar cancer Psychosocial History Hx Anxiety Yes: due to stress of taking care of Pain History History of Any Previous or Ongoing No Significant History Instance of Pain Anesthesia History Hx Anesthesia Reactions No Significant History Other History Hx Cancer Yes: breast 2005/volvuar 2016/ colon ca 1973 Hx Chemotherapy Yes Hx Radiation Therapy Yes Evaluation Information Problem Diagnosis CVA Onset 08/28/2020 Additional Evaluation Detail history of cancer treated with radiation that cause osteopenia/weak bones; has fractured right hip twice (non -surgical) and left hip one ( surgical) Subjective Information CVA - when CVA occurred she Query Text:As Reported By Patient/ fell and broke her right hip. Family Was on hospice with an at home
--- NOTE | 2021-01-24 11:47 | PTOPEVAL ---
PHYSICAL THERAPY PLAN OF CARE UPDATE AND PROGRESS REPORT Thank you for referring Flori Oleary to [facility].? The patient is scheduled to be seen for therapy? 2x/week for 4 weeks. Please review, sign, date and return this plan of care KLARISSA. I agree with and certify that the following plan of care is medically necessary. Referring Physician Date Attending Provider: Sal Austin DO Diagnosis CVA Onset 08/28/2020 Additional Evaluation Detail history of cancer treated with radiation that cause osteopenia/weak bones; has fractured right hip twice (non -surgical) and left hip one ( surgical) Subjective Information reports she is doing much much Query Text:As Reported By Patient/ better - started doing her Family own laundry, cooking for herself. States she uses a walker to walk short distances at home. Pain Score Pain Score 0: Self Report Lower Extremity Muscle Strength Testing Hip Strength Bilateral Hip Flexion Strength 3 Fair Hip Extension Strength 3 Fair Hip Abduction Strength 3 Fair Knee Strength Bilateral Knee Flexion Strength 4 Good Knee Extension Strength 4- Good - Balance Assessment Guerrero Balance Assessment Sitting to Standing Independent w/Hands Unsupported Stance Ability Supervision- 2 minutes Sitting Unsupported, Feet on Floor Safely- 2 minutes Standing to Sitting Assist, Control w/Hands Transfer Ability Supervision, Verbal Cues Unsupported Stance- Eyes Closed Supervision, 10 seconds Unsupported Stance- Feet Together Supervision to maintain Reaching Forward while Standing Supervision 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 Object From Floor Requires Supervision Look Behind Shoulder - Standing Supervision w/Turning Turning 360 Degrees Supervision/Verbal Cues Unsupported Stance, Alternating Feet on Assist to Prevent Fall Stair Unsupported Tandem Stance Assist to Step-15 seconds Unilateral Leg Stance Unable,assist to not fall GUERRERO Balance Evaluation Total Score (/56 26 points) Time Up Go (TUG) Timed Up and Go Test (TUG) (Seconds) 69 Assistive Devices Walker, Wheeled 5 Time Sit to Stand Time in Seconds 47.2 5 Time Sit to Stand Comments with arm rests Query Text:Normative Data: If Greater Than 15 Seconds, 74% Increase Risk for Recurrent Falls Gait Assessment 6 Minute Walk Total Distance (feet) 226 6 Minute Walk Gait Speed Score (feet/ 0.62 second) 6 Minute Gait Comments stopped test a
--- NOTE | 2021-02-04 17:29 | PCPTNOTE ---
Patient called & cancelled scheduled appointment this date due to no transportation.
--- NOTE | 2021-02-14 10:31 | PCPTNOTE ---
Patient did not show up for scheduled appointment this date; called patient who answered phone call stating she thought her appointments were at 11pm. Informed her next appointment is February 19 at 10am.
--- NOTE | 2021-02-21 11:21 | PTOPEVAL ---
PHYSICAL THERAPY DISCHARGE NOTE Thank you for referring Flori Oleary to [facility].? Please review, sign, date and return this plan of care KLARISSA. I agree with and certify that the following plan of care is medically necessary. Referring Physician Date Attending Provider: Sal Austin DO Diagnosis CVA Onset 08/28/2020 Additional Evaluation Detail history of cancer treated with radiation that cause osteopenia/weak bones; has fractured right hip twice (non -surgical) and left hip one ( surgical) Subjective Information continues to do her own Query Text:As Reported By Patient/ laundry and some cooking; Family states that the last 1-2weeks has been difficult because she has had more swelling in her legs, has not walked as much due to right knee pain, and it is the one year anniversary of her 's . Pain Score Pain Score 0: Self Report Additional Pain Score Comments . Lower Extremity Muscle Strength Testing Hip Strength Bilateral Hip Flexion Strength 3 Fair Hip Extension Strength 3 Fair Hip Abduction Strength 3 Fair Knee Strength Bilateral Knee Flexion Strength 4 Good Knee Extension Strength 4- Good - Balance Assessment Guerrero Balance Assessment Sitting to Standing Independent w/Hands Unsupported Stance Ability Supervision- 2 minutes Sitting Unsupported, Feet on Floor Safely- 2 minutes Standing to Sitting Assist, Control w/Hands Transfer Ability Safely, Hand Use Unsupported Stance- Eyes Closed Supervision, 10 seconds Unsupported Stance- Feet Together Supervision to maintain Reaching Forward while Standing Safely, 2 inches optical instruments supervisor Object From Floor Requires Supervision Look Behind Shoulder - Standing Turns Sideways Only Turning 360 Degrees Requires Assistance Unsupported Stance, Alternating Feet on Assist to Prevent Fall Stair Unsupported Tandem Stance Assist to Step-15 seconds Unilateral Leg Stance Unable,assist to not fall GUERRERO Balance Evaluation Total Score (/56 28 points) Time Up Go (TUG) Timed Up and Go Test (TUG) (Seconds) 59 Assistive Devices Walker, Wheeled Comments 1month ago: 69 5 Time Sit to Stand Time in Seconds 36.1 5 Time Sit to Stand Comments with arm rests Query Text:Normative Data: If Greater 1month ago: 47.2seconds with Than 15 Seconds, 74% Increase Risk for arm rests Recurren
== END 2021-02-22 14:08 | disposition home or self-care (01) ==
LOC: ANHPT 10:00
PROVIDERS: PCP Internal Medicine; Visit Provider Internal Medicine
DX: I69.30 Unspecified sequelae of cerebral infarction (principal)
CPT/HCPCS: 97110; 97112; 97116; 97140; 97162

== ENCOUNTER 2021-03-07 09:07 | Outpatient (CLI) | payer MEDICARE, SELFPAY ==
[2021-03-07 10:32] LABS: Anion Gap 9 mmol/L (8-16); Blood Urea Nitrogen 21 mg/dL (7-17); Calcium 9.8 mg/dL (8.4-10.2); Carbon Dioxide 27 mmol/L (22-30); Chloride 101 mmol/L (98-107); Estimated Glomerular Filt Rate 43; Glucose 98 mg/dL (65-110); Potassium 4.4 mmol/L (3.4-5.0); Sodium 137 mmol/L (137-145)
== END 2021-03-07 09:08 | disposition home or self-care (01) ==
LOC: ANHLAB 09:11
PROVIDERS: PCP Internal Medicine; Visit Provider Nurse Practitioner
DX: R60.9 Edema, unspecified (principal)
CPT/HCPCS: 36415; 80048

== ENCOUNTER 2021-04-10 09:17 | Outpatient (CLI) | payer MEDICARE, SELFPAY ==
[2021-04-10 10:08] LABS: Anion Gap 7 mmol/L (8-16); Blood Urea Nitrogen 13 mg/dL (7-17); Calcium 9.5 mg/dL (8.4-10.2); Carbon Dioxide 25 mmol/L (22-30); Chloride 99 mmol/L (98-107); Estimated Glomerular Filt Rate 60; Glucose 101 mg/dL (65-110); Potassium 4.1 mmol/L (3.4-5.0); Sodium 131 mmol/L (137-145)
== END 2021-04-10 09:18 | disposition home or self-care (01) ==
PROVIDERS: PCP Internal Medicine; Visit Provider Internal Medicine
DX: N28.9 Disorder of kidney and ureter, unspecified (principal)
CPT/HCPCS: 36415; 80048

== ENCOUNTER 2021-06-10 10:08 | Outpatient (CLI) | payer MEDICARE, SELFPAY ==
[2021-06-10 11:12] LABS: Anion Gap 5 mmol/L (8-16); Blood Urea Nitrogen 15 mg/dL (7-17); Calcium 9.5 mg/dL (8.4-10.2); Carbon Dioxide 28 mmol/L (22-30); Chloride 99 mmol/L (98-107); Estimated Glomerular Filt Rate 47; Glucose 105 mg/dL (65-110); Sodium 132 mmol/L (137-145)
== END 2021-06-10 10:09 | disposition home or self-care (01) ==
PROVIDERS: PCP Internal Medicine; Visit Provider Internal Medicine
DX: N28.9 Disorder of kidney and ureter, unspecified (principal)
CPT/HCPCS: 36415; 80048

== ENCOUNTER 2021-07-08 14:00 | Outpatient (RCR) | payer MEDICARE, SELFPAY ==
--- NOTE | 2021-06-19 10:14 | PTOPEVAL ---
PHYSICAL THERAPY EVALUATION AND PLAN OF CARE 06-19-21 Thank you for referring Flori Oleary to [facility] for the diagnosis of L LE lymphedema.? Pat is scheduled to be seen for therapy? 3 x/week for 4 weeks. Please review, sign, date and return this plan of care KLARISSA. I agree with and certify that the following plan of care is medically necessary. Referring Physician Date Attending Provider: Sal Austin MD PT Evaluation Outpatient Past Medical History Past Medical History Source of Past Medical History Recalled from Previous Visit, Confirmed with Patient/Family Neurological History Hx Cerebrovascular Accident (CVA) Yes: R side weakness Hx Transient Ischemic Attacks (TIA) Yes Cardiovascular History Hx Atrial Fibrillation Yes Hx Cardiac Catheterization Yes Hx Cardiac Surgery Yes: bypass surgery Hx Congestive Heart Failure Yes Hx Coronary Stent Yes Hx Hypertension Yes: meds Respiratory History Hx Other Respiratory Disorders Yes: SOB due to CHF Gastrointestinal History Hx Colorectal Cancer Yes: 1973- surgical removal of colon Genitourinary History Hx Renal Disease Yes Musculoskeletal History Hx Arthritis Yes: bilateral knees/bilateral wrists Hx Fractures Yes: lt hip, left upper arm, R hip Hx Joint Replacement Yes: lt hip Hx Orthopedic Surgery Yes: L & R hip and left arm Hematological History Hx Hematological Disorders No Significant History Endocrine History Hx Endocrine Disorders No Significant History HEENT History Hx Cataracts Yes: left eye cataract removed 10 years ago Integumentary History Hx Skin Disorders No Significant History Reproductive History Hx Other Reproductive Disorders Yes: vulvar cancer- chemo and radiation Psychosocial History Hx Anxiety Yes: due to stress of taking care of Pain History History of Any Previous or Ongoing No Significant History Instance of Pain Anesthesia History Hx Anesthesia Reactions No Significant History Other History Hx Cancer Yes: breast 2005/vulvuar 2016/ colon ca 1973 Hx Chemotherapy Yes Hx Radiation Therapy Yes Hx Other Surgeries Yes: R mastectomy Evaluation Information Problem Diagnosis L LE lymphedema Onset Apr 2021 Prior Level of Function Home Setting Home Type Apartment Living Situation Alone Support Available Local Family Support Mobility Assistive Devices (Used Last 3 Wheelchair,
--- NOTE | 2021-07-08 15:11 | PTOPEVAL ---
PHYSCIAL THERAPY DISCHARGE 07-08-21 Refer to the clinical summary below, for her status today, compared to the initial evaluation. Discharge PT services. Thank you for referring Flori Oleary to [facility].? Please review, sign, date and return this Discharge report [email or web address]. I agree with and certify that the following plan of care is medically necessary. Referring Physician Date Attending Provider: Sal Austin, DO Document 07/08/21 14:00 JOCELYN (Rec: 07/08/21 15:11 JOCELYN [id number]) Subjective Information Pat reports: legs are smaller, Query Text:As Reported By Patient/ doing good with the garments Family and her self massage; putting velcro garments on by herself; L leg still have to help it get into the car--cannot lift it up; ready for discharge from PT. Timing of Pain Assessment Assessment Self Report Self Report Pain Level 0 Pain Score Pain Score 0: Self Report Gross Lower Extremity strength functional strength LEs; Comments supine SLR x L 4 reps with knee flexion/ R 8 reps; hip abduction R /L 12 reps sitting; knee extension, hip flexion and ankle circles x 10 reps supine/sit requires use of UE to move legs Skin Inspection Location Left Lower Extremity,Right Lower Extremity Palpation Findings Cool Skin Temperature Tissue Texture Firm Lymphedema Stage I Skin Inspection Comment both legs with good skin color , without fibrotic tissue; malleoli visible; education: issued and performed leg strengthening exercises, review of self MLD, garment wearing, replacement, skin care; pt did not have any questions or concerns about self care and lymphedema management; LE Circumferential Measurement Right LE Lymphedema Side Right Metatarsal Heads (cm) 22.2 Figure 8 of Ankle (cm) 50.4 8 cm From Bottom of Foot (cm) 23.6 12 cm From Bottom of Foot (cm) 25 16 cm From Bottom of Foot (cm) 27.5 20 cm From Bottom of Foot (cm)
== END 2021-07-09 15:41 | disposition home or self-care (01) ==
LOC: ANHPT 14:00
PROVIDERS: PCP Internal Medicine; Visit Provider Internal Medicine
DX: I69.30 Unspecified sequelae of cerebral infarction (principal); R60.9 Edema, unspecified
CPT/HCPCS: 29581; 97110; 97140; 97162

== ENCOUNTER 2021-07-11 14:49 | Outpatient (CLI) | payer MEDICARE, SELFPAY ==
--- NOTE | ~2021-07-11 | XR_ITS ---
EXAMINATION: XR chest 2V DATE: 07/11/2021 16:15 INDICATION: Chronic shortness of breath TECHNIQUE: Frontal and lateral views of the chest are obtained COMPARISON: 12/07/2019 FINDINGS: There are small pleural effusions, right greater than left. Airspace opacities are present in the lung bases. There is no pneumothorax. The cardiomediastinal silhouette is stable. Cardiomegaly is noted. Median sternotomy wires and mediastinal surgical clips are seen, likely from prior coronar y artery bypass grafting. Orthopedic hardware is noted in the proximal left humerus. There is osteope ernst of the thoracic spine with exaggerated kyphosis. A minimal lower thoracic compression deformity i s noted. IMPRESSION: 1. Small pleural effusions, right greater than left. 2. Bibasilar airspace opacities, likely atelectasis. Reviewed, dictated and finalized at location B. [employer] INSPECT[employer]
[2021-07-11 15:48] LABS: Basophils Percent Auto 0.4 % (0.2-1.2); Eosinophils Absolute Auto 0.1 K/mm3 (0-0.3); Eosinophils Percent Auto 1.2 % (0-4.4); Hematocrit 38.6 % (37.0-47.0); Hemoglobin 11.9 g/dL (12.0-15.0); Immature Granulocyte Absolute 0.02 K/mm3 (0.00-0.031); Immature Granulocyte Percent A 0.3 % (0-0.5); Lymphocytes Percent Auto 13.1 % (18.3-44.2); Mean Corpuscular HGB Conc 30.8 g/dl (32-36); Mean Corpuscular Hemoglobin 27.9 pg (26-34); Mean Corpuscular Volume 90.6 fl (80-100); Mean Platelet Volume 9.9 fl (7.4-10.4); Monocytes Absolute Auto 0.5 K/mm3 (0.1-0.6); Monocytes Percent Auto 6.8 % (2.6-8.5); Neutrophils Absolute Auto 5.4 K/mm3 (1.3-6.7); Neutrophils Percent Auto 78.2 % (45.5-73.1); Platelet Count Result 262 k/mm3 (150-375); Red Blood Count 4.26 M/mm3 (4.2-5.4); Red Cell Distribution Width 16.4 % (11.5-14.5); White Blood Count 6.9 K/mm3 (4.5-10.0)
[2021-07-11 16:01] LABS: Alanine Aminotransferase 10 U/L (4-35); Albumin Level 3.8 g/dL (3.5-5.1); Alkaline Phosphatase 130 U/L (38-126); Anion Gap 8 mmol/L (8-16); Aspartate Amino Transferase 21 U/L (14-36); Bilirubin,Total 0.7 mg/dL (0.2-1.3); Blood Urea Nitrogen 14 mg/dL (7-17); Calcium 8.9 mg/dL (8.4-10.2); Carbon Dioxide 27 mmol/L (22-30); Chloride 99 mmol/L (98-107); Estimated Glomerular Filt Rate 60; Glucose 98 mg/dL (65-110); Potassium 3.2 mmol/L (3.4-5.0); Sodium 134 mmol/L (137-145)
[2021-07-11 16:13] LABS: NT Pro B Type Natriuretic Pept 17800 pg/mL (5-100); Troponin I 0.015 ng/mL (0.000-0.034)
== END 2021-07-11 14:50 | disposition home or self-care (01) ==
LOC: ANHLAB 14:56
PROVIDERS: PCP Internal Medicine; Visit Provider Family Medicine
DX: R06.00 Dyspnea, unspecified (principal); R06.02 Shortness of breath; J90 Pleural effusion, not elsewhere classified; R91.8 Other nonspecific abnormal finding of lung field
CPT/HCPCS: 36415; 71046; 80053; 83880; 84484; 85025

== ENCOUNTER 2021-07-12 13:48 | Outpatient (CLI) | payer MEDICARE, SELFPAY ==
--- NOTE | 2021-07-12 13:50 | ECHO_ITS ---
Patient Info Name: Flori Oleary Age: 85 years : 1935 Gender: Female Ht: 63 in Wt: 142 lbs BSA: 1.70 m2 HR: 66 bpm BP: 178 / 82 mmHg Technical Quality: Good Exam Date: 07/12/2021 2:12 PM Exam Location: [facility] Patient Status: Outpatient Admit Date: 07/12/2021 Staff Ordering Physician: Latisha Salazar DO Balance Staff Inspector: Chely Hagen RDCS Attending Provider: Latisha Salazar DO Referring Physician: Martin GEORGE; Exam Type: CA echo doppler color flow Study Info Indications - SHORTNESS OF BREATH Complete two-dimensional, color flow and Doppler transthoracic echocardiogram is performed. Summary 1. Complete two-dimensional, color flow and Doppler transthoracic echocardiogram is performed. 2. Left ventricular chamber dimension is mildly enlarged. 3. Left ventricular systolic function is preserved, estimated at 50-55%. 4. The left ventricular diastolic function is abnormal. 5. E/e' 24 is elevated. 6. Atrial fibrillation. 7. Left atrial chamber dimension is severely enlarged. 8. Right atrial chamber dimension is severely enlarged. 9. There is mild aortic valve sclerosis. 10. The mitral valve has mildly calcified annulus. 11. There is moderate mitral valve regurgitation. 12. There is moderate to severe tricuspid valve regurgitation. 13. Moderate pulmonary hypertension, estimated pulmonary arterial systolic pressure is 55 mmHg. 14. There is trace pulmonic regurgitation. Left Ventricle E/e' 24 is elevated. Atrial fibrillation. Left ventricular chamber dimension is mildly enlarged. Left ventricular systolic function is preserved, estimated at 50-55%. The left ventricular diastolic function is abnormal. Right Ventricle Right ventricular chamber dimension is not well visualized. Left Atria Left atrial chamber dimension is severely enlarged. Right Atria Right atrial chamber dimension is severely enlarged. Aortic Valve The aortic valve is trileaflet. There is mild aortic valve sclerosis. There is no aortic valve stenosis. There is no aortic valve regurgitation. Pulmonic Valve There is trace pulmonic regurgitation. Mitral Valve The mitral valve has mildly calcified annulus. There is no mitral valve stenosis. There is moderate mitral valve regurgitation. Tricuspid Valve There is moderate to severe tricuspid valve regurgitation. Moderate pulmonary hypertension, estimated pulmonary arterial systolic pressure is 55 mmHg. Pericardium/Pleural There is no pericardial effusion. Inferior Vena Cava Normal inferior vena cava with >50% collapse upon inspiration consistent with normal right atrial pressure, 5 mmHg. Aorta The aortic root size at the sinus of Valsalva is normal. Left Ventricular Outflow Tract Name Value Normal LVOT 2D LVOT Diameter 2.0 cm LVOT Doppler LVOT Peak Gradient 4 mmHg LVOT Mean Gradient 2 mmHg LVOT VTI 20 cm LVOT VTI/AV VTI Ratio 0.7 LVOT Stroke Volume 62 ml LVOT CO
== END 2021-07-12 13:49 | disposition home or self-care (01) ==
PROVIDERS: PCP Internal Medicine; Visit Provider Family Medicine
DX: R06.02 Shortness of breath (principal); I08.3 Combined rheumatic disorders of mitral, aortic and tricuspid valves
CPT/HCPCS: 93306

== ENCOUNTER 2021-07-17 08:48 | Outpatient (CLI) | payer MEDICARE, SELFPAY ==
[2021-07-17 09:18] LABS: Anion Gap 6 mmol/L (8-16); Blood Urea Nitrogen 25 mg/dL (7-17); Calcium 8.7 mg/dL (8.4-10.2); Carbon Dioxide 36 mmol/L (22-30); Chloride 95 mmol/L (98-107); Estimated Glomerular Filt Rate 36; Glucose 117 mg/dL (65-110); Potassium 3.1 mmol/L (3.4-5.0); Sodium 137 mmol/L (137-145)
== END 2021-07-17 08:49 | disposition home or self-care (01) ==
PROVIDERS: PCP Internal Medicine; Visit Provider Family Medicine
DX: I50.9 Heart failure, unspecified (principal)
CPT/HCPCS: 36415; 80048

== ENCOUNTER 2021-07-24 12:17 | Outpatient (CLI) | payer MEDICARE, SELFPAY ==
[2021-07-24 12:42] LABS: Basophils Percent Auto 0.9 % (0.2-1.2); Eosinophils Absolute Auto 0.1 K/mm3 (0-0.3); Eosinophils Percent Auto 2.4 % (0-4.4); Hematocrit 37.4 % (37.0-47.0); Hemoglobin 11.4 g/dL (12.0-15.0); Immature Granulocyte Absolute 0.01 K/mm3 (0.00-0.031); Immature Granulocyte Percent A 0.2 % (0-0.5); Lymphocytes Absolute Auto 0.94 K/mm3 (0.9-3.2); Lymphocytes Percent Auto 20.6 % (18.3-44.2); Mean Corpuscular HGB Conc 30.5 g/dl (32-36); Mean Corpuscular Hemoglobin 27.5 pg (26-34); Mean Corpuscular Volume 90.3 fl (80-100); Mean Platelet Volume 9.9 fl (7.4-10.4); Monocytes Absolute Auto 0.4 K/mm3 (0.1-0.6); Monocytes Percent Auto 7.9 % (2.6-8.5); Neutrophils Absolute Auto 3.1 K/mm3 (1.3-6.7); Platelet Count Result 262 k/mm3 (150-375); Red Blood Count 4.14 M/mm3 (4.2-5.4); Red Cell Distribution Width 16.1 % (11.5-14.5); White Blood Count 4.6 K/mm3 (4.5-10.0)
[2021-07-24 12:54] LABS: Alanine Aminotransferase 12 U/L (4-35); Albumin Level 3.8 g/dL (3.5-5.1); Alkaline Phosphatase 102 U/L (38-126); Anion Gap 6 mmol/L (8-16); Aspartate Amino Transferase 22 U/L (14-36); Bilirubin,Total 0.5 mg/dL (0.2-1.3); Blood Urea Nitrogen 17 mg/dL (7-17); Calcium 9.1 mg/dL (8.4-10.2); Carbon Dioxide 28 mmol/L (22-30); Chloride 102 mmol/L (98-107); Estimated Glomerular Filt Rate 31; Glucose 106 mg/dL (65-110); Potassium 4.2 mmol/L (3.4-5.0); Sodium 136 mmol/L (137-145)
== END 2021-07-24 12:18 | disposition home or self-care (01) ==
PROVIDERS: PCP Internal Medicine; Visit Provider Internal Medicine
DX: I50.9 Heart failure, unspecified (principal); E87.8 Other disorders of electrolyte and fluid balance, not elsewhere classified; I48.91 Unspecified atrial fibrillation
CPT/HCPCS: 36415; 80053; 85025

== ENCOUNTER 2021-08-01 13:37 | Outpatient (CLI) | payer MEDICARE, SELFPAY ==
[2021-08-01 14:10] LABS: Anion Gap 6 mmol/L (8-16); Blood Urea Nitrogen 17 mg/dL (7-17); Carbon Dioxide 29 mmol/L (22-30); Chloride 99 mmol/L (98-107); Estimated Glomerular Filt Rate 43; Glucose 103 mg/dL (65-110); Potassium 3.9 mmol/L (3.4-5.0); Sodium 134 mmol/L (137-145)
== END 2021-08-01 13:38 | disposition home or self-care (01) ==
LOC: ANHLAB 13:40
PROVIDERS: PCP Internal Medicine; Visit Provider Family Medicine
DX: N17.9 Acute kidney failure, unspecified (principal)
CPT/HCPCS: 36415; 80048

== ENCOUNTER 2021-08-07 11:00 | Outpatient (CLI) | payer MEDICARE, SELFPAY ==
[2021-08-07 12:06] LABS: Anion Gap 6 mmol/L (8-16); Blood Urea Nitrogen 15 mg/dL (7-17); Carbon Dioxide 26 mmol/L (22-30); Chloride 102 mmol/L (98-107); Estimated Glomerular Filt Rate 60; Glucose 106 mg/dL (65-110); Potassium 4.5 mmol/L (3.4-5.0); Sodium 134 mmol/L (137-145)
== END 2021-08-07 11:01 | disposition home or self-care (01) ==
LOC: ANHLAB 11:02
PROVIDERS: PCP Internal Medicine; Visit Provider Family Medicine
DX: R79.89 Other specified abnormal findings of blood chemistry (principal)
CPT/HCPCS: 36415; 80048